=== PATIENT | female | born 1960 | race Caucasian/White ===

== ENCOUNTER 2022-01-25 08:09 | Outpatient (RCR) | payer OTHER, SELFPAY | END 2022-02-26 13:14 | disposition home or self-care (01) | PROVIDERS: PCP Family Medicine; Visit Provider Nurse Practitioner Family | DX: M79.672 Pain in left foot (principal); Z51.89 Encounter for other specified aftercare | CPT/HCPCS: 97161 ==

== ENCOUNTER 2022-04-03 11:43 | Outpatient (CLI) | payer OTHER, SELFPAY ==
[2022-04-03 15:56] LABS: Basophils Absolute Auto 0.07 K/uL (0.00-0.30); Basophils Percent Auto 0.7 % (0.0-3.0); Eosinophils Absolute Auto 0.19 K/uL (0.00-0.50); Eosinophils Percent Auto 1.9 % (0.0-7.0); Hematocrit 39.3 % (33.0-51.0); Hemoglobin* 12.8 gm/dL (12.0-16.0); Immature Granulocytes Abs Auto 0.02 K/uL (0.00-0.30); Lymphocytes Absolute Auto 2.56 K/uL (0.90-2.90); Lymphocytes Percent Auto 26.3 % (20-44); Mean Corpuscular HGB Conc 33 gm/dL (32-36); Mean Corpuscular Hemoglobin 31 pg (26-34); Mean Corpuscular Volume 94 fL (80-100); Monocytes Percent Auto 11.3 % (0.0-11.0); Neutrophils Absolute Auto 5.81 K/uL (1.7-7.0); Neutrophils Percent Auto 59.6 % (42.0-72.0); Platelet Count* 297 K/uL (140-440); RDW Coefficient of Variation % 11.4 % (11.5-15.5); White Blood Count* 9.75 K/uL (4.50-11.00)
[2022-04-03 16:02] LABS: Slide Review Reflex No
== END 2022-04-03 11:44 | disposition home or self-care (01) ==
LOC: KYNREF 11:49
PROVIDERS: PCP Family Medicine; Visit Provider Nurse Practitioner Family
DX: R05.9 Cough, unspecified (principal); R53.83 Other fatigue
CPT/HCPCS: 36415; 85025

== ENCOUNTER 2022-04-11 14:58 | Emergency (ER) | payer OTHER, SELFPAY ==
[2022-04-11 15:09] VITALS: BP 133/77; PULSE 75; RESP 16; TEMP 35.7; O2SAT 100; BMI 20.8
[2022-04-11 15:15] VITALS: BP 118/75; BP 119/81; PULSE 71; PULSE 79; RESP 18; RESP 21; O2SAT 100; O2SAT 99
--- NOTE | 2022-04-11 15:39 | CRLHL7_ITS ---
For Patients: As a result of the Century Cures Act, medical imaging exams and procedure reports are released immediately into your electronic medical record. You may view this report before your referring provider. If you have questions, please contact your health care provider. INDICATION: Right upper quadrant abdomen pain. TECHNIQUE: Ultrasound abdomen limited. Sonographic images of the right upper quadrant were obtained using fletcher-scale and color Doppler images. COMPARISON: None. FINDINGS: Liver: Normal in size and echotexture. No suspicious masses. No intrahepatic biliary dilation. Gallbladder: Non dependent echogenic focus is not shadowing and measures approximately 3 mm. No shadowing gallstones. Normal wall thickness. No pericholecystic fluid. Common bile duct: 4 mm. Pancreas: Unremarkable. Right kidney: Normal in size. Normal echotexture and cortex. Mild hydronephrosis. Vasculature: Proximal abdominal aorta and IVC are unremarkable. IMPRESSION: 1. Probable gallbladder polyp measures 3 mm. 2. Mild right hydronephrosis. 3. No other sonographic abnormality in the right upper quadrant. Dictated by Alvaro Mccormick MD @ 04/11/2022 5:30:08 PM (Electronically Signed)
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
[2022-04-11 15:45] VITALS: PULSE 73; RESP 22
[2022-04-11 15:53] LABS: Basophils Absolute Auto 0.03 K/uL (0.00-0.30); Basophils Percent Auto 0.6 % (0.0-3.0); Eosinophils Absolute Auto 0.12 K/uL (0.00-0.50); Eosinophils Percent Auto 2.4 % (0.0-7.0); Hematocrit 37.5 % (33.0-51.0); Hemoglobin* 12.6 gm/dL (12.0-16.0); Lymphocytes Absolute Auto 1.84 K/uL (0.90-2.90); Lymphocytes Percent Auto 37.3 % (20-44); Mean Corpuscular HGB Conc 34 gm/dL (32-36); Mean Corpuscular Hemoglobin 31 pg (26-34); Mean Corpuscular Volume 91 fL (80-100); Monocytes Percent Auto 7.1 % (0.0-11.0); Neutrophils Absolute Auto 2.59 K/uL (1.7-7.0); Neutrophils Percent Auto 52.6 % (42.0-72.0); Platelet Count* 349 K/uL (140-440); RDW Coefficient of Variation % 11.3 % (11.5-15.5); Red Blood Count 4.13 m/uL (4.00-5.20); Slide Review Reflex No; White Blood Count* 4.93 K/uL (4.50-11.00)
[2022-04-11] MEDS: MORPHINE 4 MG/ML INJ IVP (15:53)
[2022-04-11] MEDS: 0.9 % SODIUM CHLORIDE 1000 ml 1,000 ML 6000 ML IV (15:53)
[2022-04-11 16:00] VITALS: BP 118/74; PULSE 78; O2SAT 95; O2SAT 96
[2022-04-11 16:10] LABS: Albumin* 4.2 g/dL (3.3-5.0); Chloride* 102 mmol/L (96-114)
[2022-04-11 16:11] LABS: Potassium* 3.8 mmol/L (3.6-5.1); Sodium* 137 mmol/L (135-149)
[2022-04-11 16:12] LABS: Amylase* 82 U/L (18-89)
[2022-04-11 16:13] LABS: Aspartate Amino Transferase* 27 U/L (12-35); Bilirubin Total* 0.2 mg/dL (0.1-1.5); Carbon Dioxide* 25 mmol/L (20-32); Creatinine* 0.6 mg/dL (0.5-1.5); Est. Creatinine Clearance* 56.49; Estimated Glomerular Filt Rate 101 ml/min; Total Protein* 7.1 g/dL (6.0-8.3)
[2022-04-11 16:14] LABS: Alanine Aminotransferase* 19 U/L (4-35); Alkaline Phosphatase* 93 U/L (40-150); Blood Urea Nitrogen* 14 mg/dL (7-30); Glucose* 96 mg/dL (60-115)
[2022-04-11 16:18] LABS: C Reactive Protein* < 0.5 mg/dL (0.5-1.0)
[2022-04-11 16:22] LABS: NT Pro B Type NatriureticPept* 26 PG/mL (0-125)
[2022-04-11 16:30] VITALS: BP 123/72; PULSE 77; RESP 16; O2SAT 97
[2022-04-11 16:33] LABS: Troponin I* < 0.01 ng/mL (0.01-0.04)
--- NOTE | 2022-04-11 16:42 | CRLHL7_ITS ---
For Patients: As a result of the Century Cures Act, medical imaging exams and procedure reports are released immediately into your electronic medical record. You may view this report before your referring provider. If you have questions, please contact your health care provider. INDICATION: RUQ abdominal pain, right hydroureter TECHNIQUE: CT abdomen and pelvis without contrast, stone protocol. COMPARISON: CT abdomen pelvis May 30, 2020 FINDINGS: Kidney/ureters: Kidneys are normal in caliber. No kidney or ureteral stones. Mild right and no significant left hydronephrosis. No sign of perinephric inflammation. Ureters are normal in caliber. The bladder is decompressed. Liver/gallbladder/bile ducts: The liver is normal in size, shape and attenuation. Within the left hepatic lobe there is slightly similar low-density lesion measuring 2.4 cm, likely hepatic cyst. Gallbladder is normal without visualized stones or inflammation. No biliary dilatation. Spleen/pancreas/adrenal glands: The spleen, adrenal glands and pancreas are within normal limits. GI tract: No evidence of bowel obstruction. No evidence of enteric inflammation on this unenhanced CT. Suspect that the appendix is surgically absent. There is moderate fecal retention throughout the colon of note the rectum is severely distended and air filled measuring up to 7 cm. Abdominal wall/omentum/peritoneum: No free air or significant free fluid. No mass or inflammation. Small fat containing umbilical hernia. Lymph nodes: No lymphadenopathy. Pelvis: Unremarkable pelvis. Lower chest: Unremarkable. Bones: Grade 1 anterolisthesis of L5 on S1 secondary to L5 pars defects. Moderate multilevel degenerative spondylosis without acute fracture or aggressive osseous lesion. IMPRESSION: 1. Moderate fecal retention throughout the colon and the rectum is severely distended with stool but mostly air, measuring up to 7 cm. 2. Mild right hydronephrosis without evidence of nephrolithiasis or ureterolithiasis. Finding may relate to mass effect from the distended rectum. 3. Grade 1 spondylolytic spondylolisthesis of L5 on S1. Please note that all CT scans at this facility use dose modulation, iterative reconstruction, and/or weight-based dosing when appropriate to reduce radiation dose to as low as reasonably achievable. Dictated by Felipe Lane MD @ 04/11/2022 5:51:11 PM (Electronically Signed)
[2022-04-11 17:00] LABS: Appearance Urine Clear (Clear); Bilirubin Urine Negative (Negative); Blood Urine Negative (Negative); Color Urine Yellow (Yellow); Glucose Urine Negative (Negative); Ketones Urine Negative (Negative); Leukocyte Esterase Urine Negative (Negative); Nitrite Urine Negative (Negative); Protein Urine Negative (Negative); Specific Gravity Urine 1.015 (1.000-1.030); Urobilinogen Urine 0.2 (0.2-1.0); pH Urine 7.5 (5.0-8.5)
[2022-04-11 17:06] LABS: Amorphous Sediment Urine Moderate; Bacteria Urine Few; RBC Urine 0-2 (0-2); WBC Urine 0-2 (0-5)
== END 2022-04-11 18:30 | disposition home or self-care (01) ==
PROVIDERS: Emergency Provider Family Medicine; PCP Nurse Practitioner Family
DX: R10.9 Unspecified abdominal pain (principal); K59.00 Constipation, unspecified
CPT/HCPCS: 36415; 74176; 76705; 80048; 80076; 81001; 82150; 83605; 83880; 84484; 85025; 86140; 87086; 93005; 94761; 96374; 99284; 99285; J2270; J7030

== ENCOUNTER 2022-05-18 07:04 | Outpatient (CLI) | payer OTHER, SELFPAY ==
--- NOTE | 2022-05-18 07:15 | CRLHL7_ITS ---
For Patients: As a result of the Cures Act, medical imaging exams and procedure reports are released immediately into your electronic medical record. You may view this report before your referring provider. If you have questions, please contact your health care provider. Indication: LEFT KNEE PAIN, SUSPECT [place]ugent CYST Technique: Grayscale and color Doppler ultrasound of the left posterior knee soft tissues. Comparison: Radiographs 05/14/2022 Findings/impression : Mildly complicated popliteal cyst and adjacent additional popliteal cyst or soft tissue ganglion cyst measuring 3.1 cm and 2.0 cm, respectively. No abnormal vascularity. Dictated by Daen Rajan MD @ 05/18/2022 11:27:23 AM (Electronically Signed)
== END 2022-05-18 07:05 | disposition home or self-care (01) ==
LOC: US 07:06
PROVIDERS: PCP Nurse Practitioner Family; Visit Provider Nurse Practitioner Family
DX: M25.562 Pain in left knee (principal); M71.22 Synovial cyst of popliteal space [Baker], left knee
CPT/HCPCS: 76882

== ENCOUNTER 2022-05-29 08:55 | Outpatient (CLI) | payer OTHER, SELFPAY ==
--- NOTE | 2022-05-29 15:03 | MR_ITS ---
[address] [address] Phone:?[phone] Fax:?[phone] Referring Physician Information: Chago Perez M.D. [id number] [facility] [address] Phone:?[phone] Fax:?[phone] Patient:Diane Goncalves D.O.B:?1960 Sex:?Female Phone:?[phone] [facility] MRN:?[id number] Exam Date:?05/29/2022 ? EXAM: MRI of the LEFT KNEE, without contrast CLINICAL: Left knee pain. Evaluate for meniscal tear. COMPARISONS: None available. TECHNICAL: MR sequences of the left knee: sagittals: PD, PDFS coronals: PD, T2FS axials: PD, PDFS SEDATION: None. CONTRAST: None. FINDINGS: Ligaments: ACL: Intact ACL anteromedial and posterolateral bundles, without sprain or tear. PCL: Intact PCL, without acute or chronic injury. MCL: Intact MCL superficial and deep layers, without injury. LCL: There is increased soft tissue edema about the LCL, with mild irregularity/partial tearing of the mid LCL. Mild partial tearing of the conjoined distal LCL and biceps femoris tendon also noted. Posterolateral corner: Mild partial tearing of the conjoined distal LCL and biceps femoris tendon. Popliteus tendon, iliotibial band, and the popliteofibular ligament appear intact. Posteromedial corner: Semimembranosus, pes anserine tendons and posterior oblique ligament appear intact. There is mild pes anserine bursitis. Extensor mechanism: Patellar tendon: Intact, without tendinopathy. Quadriceps tendon: Intact, without tendinopathy. Retinacula: Medial and lateral retinacula are intact. Fat pads: Unremarkable infrapatellar Hoffa's, quadriceps and prefemoral fat pads. Patellofemoral joint: Patella: No significant chondromalacia. Trochlea: Focal deep chondral fissure involving the medial trochlea on axial series 4 image 19. Trochlear cartilage otherwise appears maintained. Medial compartment: Medial meniscus: Complex tearing throughout the body segment and posterior horn extending into the posterior root fibers. There is mild superior displacement of torn meniscal tissue along the posterior fibers on sagittal series 6 image 14-15 and coronal series 8 image 23. Approximately 3 mm of medial extrusion of the peripheral body segment medial meniscus. Medial cartilage: Grade 2-3 chondral loss involves the medial femoral condyle and medial tibial plateau. Lateral compartment: Lateral meniscus: Horizontal and ill-defined complex tearing involving the body segment with horizontal tearing extending into the anterior and posterior horns. Ill-defined degenerative fraying/tearing involving the posterior root fibers on sagittal series 6 image 17-20. No significant meniscal displacement. Lateral cartilage: There is heterogeneity of the lateral tibial plateau cartilage. No chondral defects identified. Knee joint: Effusion: Moderate left knee effusion. Intra-articular bodies:?No convincing bodies identified. Popliteal cyst: None. Bones: Small cystic change is seen to involve the tibial attachment site of the distal PCL with small subchondral cystic change involving the peripheral medial plateau. No osseous fracture site is identified. IMPRESSION: 1. Tearing of the medial and lateral menisci as above, with displacement of torn medial meniscal tissue as above. 2. Mild sprain injury involving the LCL with mild partial tearing of the conjoined distal LCL and biceps femoris tendon. 3. Mild pes anserine bursitis. 4. Grade 2-3 chondral loss involving the medial compartment with focal deep chondral fissure involving the medial trochlea. 5. Moderate joint effusion. Z Electronically signed on 05/29/2022 3:03:00 PM by Lazarus Leavitt D.O.
== END 2022-05-29 08:56 | disposition home or self-care (01) ==
LOC: MRI 08:55
PROVIDERS: PCP Nurse Practitioner Family; Visit Provider Orthopaedic Surgery Sports Medicine
DX: M25.562 Pain in left knee (principal); M23.204 Derangement of unspecified medial meniscus due to old tear or injury, left knee; S86.912A Strain of unspecified muscle(s) and tendon(s) at lower leg level, left leg, initial encounter; M25.462 Effusion, left knee; M71.562 Other bursitis, not elsewhere classified, left knee
CPT/HCPCS: 73721

== ENCOUNTER 2022-06-06 09:20 | Day surgery (SDC) | payer OTHER, SELFPAY ==
[2022-06-06] VITALS (11 sets, daily range): BP systolic 97–115; BP diastolic 68–85; PULSE 78–91; RESP 11–20; TEMP 36.1–36.7; O2SAT 98–100; BMI 21.4
--- NOTE | 2022-06-06 09:30 | SUR.PREOP ---
home covid test, negative
[2022-06-06] MEDS: LACTATED RINGERS 1000 ML 1,000 ML 100 ML IV (10:00)
[2022-06-06] MEDS: SODIUM CHLORIDE 0.9 % (FLUSH) 10 ML SYRINGE IVF (10:02)
[2022-06-06] MEDS: CEFAZOLIN 2 GM in 0.9 % SODIUM CHLORIDE Mini-bag 100 ML IVPB (12:50)
--- NOTE | 2022-06-06 13:15 | W.ANESCHARGE ---
Anesthesia Charges Start Date/Time Anesthesia Start Date: 06/06/22 Anesthesia Start Time: 12:38 Stop Date/Time Anesthesia Stop Date: 06/06/22 Anesthesia Stop Time: 13:33 Summary Emergency: No
[2022-06-06] MEDS: ROPIVACAINE 0.5% 30 ML 150 MG INJECTION (13:20)
--- NOTE | 2022-06-06 13:23 | P.ORPRC_ITS ---
Procedure Note Date of procedure: 06/06/22 Procedure: PREOPERATIVE DIAGNOSIS: 1. Left knee medial meniscus tear POSTOPERATIVE DIAGNOSIS: 1. Left knee medial meniscus tear PROCEDURE: 1. Left knee arthroscopic partial medial menisectomy SURGEON: Chago Perez M.D. AUTOMOTIVE SERVICE PROFESSIONAL: Vicente MORRIS. Of note, an graduate assistant was critical for this case to aid in patient positioning, knee manipulation, instrument exchange, and closure. ANESTHESIA: Spinal EBL: 2ml TOURNIQUET: 25 minutes at 300 torr COMPLICATIONS: None evident INDICATIONS: The patient is a pleasant 62-year-old female who has experienced left knee pain particularly with any twisting or turning. Physical exam was concerning for medial meniscus tear, this was confirmed on MRI. Additionally, attempted nonoperative management has been tried, and failed. Thus, surgery was recommended. FINDINGS: Complex tear posterior horn to midbody medial meniscus. Posterior root still had some connected fibers. Small region of grade 3 chondromalacia weight-bearing portion medial femoral condyle (approximately 8 mm in diameter). ACL and PCL intact robust. Lateral compartment showed minimal central fraying of the meniscus with only mild tearing. Articular cartilage was healthy. Patellofemoral compartment showed grade 2 chondromalacia trochlear groove and a small region over 8 mm in length by 3 mm wide. Patella was otherwise well preserved. No loose bodies appreciated. DESCRIPTION OF PROCEDURE: After a thorough discussion of risks, benefits, and alternatives, the patient was brought to the operating room and placed upon the operating table. Induction of anesthesia was undertaken as previously noted. 2g iv Ancef was administered within 1 hr of incision preoperatively. Appropriate time-out was performed identifying proper patient, site, and procedure. The left lower extremity was prepped and draped in the appropriate sterile fashion using ChloraPrep. The limb was exsanguinated and tourniquet inflated. Anterolateral and anteromedial portals were established with an 11 blade, and a diagnostic arthroscopy was performed. This identified the findings as noted above. Following the diagnostic arthroscopy, a partial medial menisectomy was performed with the combination of basket forceps and a motorized shaver. Following this, the meniscus was re-probed and found to be stable. Approximately 25 % of the overall meniscus required resection. Regarding the lateral meniscus, the central fraying and mild partial tearing was minimal and simply required torpedo shaver to help minimally debride this. Not a significant partial meniscectomy. At this stage, the shaver was reinserted into the suprapatellar pouch and all remaining meniscal debris was evacuated. Instruments were removed, excess fluid was drained, and closure performed with 4-0 Monocryl with Steri-Strips. Dressings were applied, the tourniquet deflated, and the patient was awoken from anesthesia and transferred to the PACU in stable condition. PLAN: 1. Weightbear as tolerated operative extremity. Crutch / walker ambulation assistance PRN. Straight leg raise to be initiated starting tomorrow by the patient. 2. Ice, acetominophen and/or ibuprofen, and Percocet for pain as needed. 3. Knee range of motion and quad sets/straight leg raise regularly 4. Follow up with PA visit in 7-10 days. for a wound check. Initiate physical therapy at that time
--- NOTE | 2022-06-06 13:52 | W.ANESCHARGE ---
Anesthesia Charges Start Date/Time Anesthesia Start Date: 06/06/22 Anesthesia Start Time: 12:38 Stop Date/Time Anesthesia Stop Date: 06/06/22 Anesthesia Stop Time: 13:33 Summary Emergency: No
== END 2022-06-06 15:21 | disposition home or self-care (01) ==
PROVIDERS: PCP Nurse Practitioner Family; Visit Provider Orthopaedic Surgery Sports Medicine
PROC: (CPT 29870; principal; 2022-06-06 11:00)
DX: S83.232A Complex tear of medial meniscus, current injury, left knee, initial encounter (principal)
CPT/HCPCS: 29881; 01400; 97116; 97161; J0690; J2250; J2370; J2704; J2795; J7120

== ENCOUNTER 2022-10-03 10:01 | Outpatient (CLI) | payer OTHER, SELFPAY ==
--- NOTE | 2022-10-03 10:15 | CRLHL7_ITS ---
For Patients: As a result of the Century Cures Act, medical imaging exams and procedure reports are released immediately into your electronic medical record. You may view this report before your referring provider. If you have questions, please contact your health care provider. BILATERAL SCREENING MAMMOGRAM WITH COMPUTER-AIDED DETECTION AND TOMOSYNTHESIS TECHNIQUE: CC and MLO views were obtained. These mammographic images have been obtained using full-field digital technique. These mammographic images were interpreted with the benefit of computer-aided detection. Breast tomosynthesis was used in this interpretation. FINDINGS: There are scattered areas of fibroglandular density. IMPRESSION: There is no radiographic evidence for malignancy. ASSESSMENT: BI-RADS Category 1: Negative RECOMMENDATION: Routine screening mammogram in 1 year. A lay language report of this examination will be provided to the patient. DEAN BURGESS M.D. Diagnostic Radiologist [email or web address]/[email or web address] Transcribed 10/03/2022, 3:[address]/Dictated by: Dean Burgess MD @ 10/03/2022 11:06:00 AM (Electronically Signed)
== END 2022-10-03 10:02 | disposition home or self-care (01) ==
LOC: MAMMO 10:01
PROVIDERS: PCP Nurse Practitioner Family; Visit Provider Nurse Practitioner Family
DX: Z12.31 Encounter for screening mammogram for malignant neoplasm of breast (principal)
CPT/HCPCS: 77063; 77067

== ENCOUNTER 2022-10-16 08:23 | Outpatient (CLI) | payer OTHER, SELFPAY ==
[2022-10-16 13:44] LABS: Basophils Absolute Auto 0.03 K/uL (0.00-0.30); Basophils Percent Auto 0.6 % (0.0-3.0); Eosinophils Absolute Auto 0.19 K/uL (0.00-0.50); Eosinophils Percent Auto 3.8 % (0.0-7.0); Hemoglobin* 13.9 gm/dL (12.0-16.0); Lymphocytes Absolute Auto 1.88 K/uL (0.90-2.90); Lymphocytes Percent Auto 37.2 % (20-44); Mean Corpuscular HGB Conc 32 gm/dL (32-36); Mean Corpuscular Hemoglobin 30 pg (26-34); Mean Corpuscular Volume 94 fL (80-100); Monocytes Percent Auto 6.9 % (0.0-11.0); Neutrophils Percent Auto 51.5 % (42.0-72.0); Platelet Count* 277 K/uL (140-440); RDW Coefficient of Variation % 12.1 % (11.5-15.5); Red Blood Count 4.66 m/uL (4.00-5.20); White Blood Count* 5.05 K/uL (4.50-11.00)
[2022-10-16 13:51] LABS: Slide Review Reflex No
[2022-10-16 15:24] LABS: Albumin* 4.5 g/dL (3.3-5.0); Chloride* 103 mmol/L (96-114)
[2022-10-16 15:25] LABS: Potassium* 4.5 mmol/L (3.6-5.1); Sodium* 139 mmol/L (135-149)
[2022-10-16 15:27] LABS: Aspartate Amino Transferase* 30 U/L (12-35); Bilirubin Total* 0.6 mg/dL (0.1-1.5); Blood Urea Nitrogen* 14 mg/dL (7-30); Carbon Dioxide* 27 mmol/L (20-32); Cholesterol* 221 mg/dL (90-199); Creatinine* 0.7 mg/dL (0.5-1.5); Estimated Glomerular Filt Rate 97 ml/min; Total Protein* 7.3 g/dL (6.0-8.3)
[2022-10-16 15:28] LABS: Alanine Aminotransferase* 21 U/L (4-35); Alkaline Phosphatase* 81 U/L (40-150); Calcium* 9.3 mg/dL (8.4-10.6); Glucose* 95 mg/dL (60-115); HDL Cholesterol* 82 mg/dL (>=50); LDL Cholesterol Calculated 115 mg/dL (<100); Triglycerides* 120 mg/dL (40-149)
== END 2022-10-16 08:24 | disposition home or self-care (01) ==
PROVIDERS: PCP Nurse Practitioner Family; Visit Provider Nurse Practitioner Family
DX: Z00.00 Encounter for general adult medical examination without abnormal findings (principal); Z13.1 Encounter for screening for diabetes mellitus; Z13.0 Encounter for screening for diseases of the blood and blood-forming organs and certain disorders involving the immune mechanism; Z13.6 Encounter for screening for cardiovascular disorders
CPT/HCPCS: 80053; 80061; 85025

== ENCOUNTER 2023-01-30 09:45 | Outpatient (RCR) | payer OTHER, SELFPAY | END 2023-05-30 23:59 | disposition home or self-care (01) | PROVIDERS: PCP Nurse Practitioner Family; Visit Provider Nurse Practitioner Family | DX: H81.11 Benign paroxysmal vertigo, right ear (principal); R26.81 Unsteadiness on feet; Z51.89 Encounter for other specified aftercare | CPT/HCPCS: 95992; 97112; 97162 ==

== ENCOUNTER 2023-04-30 14:45 | Outpatient (RCR) | payer OTHER, SELFPAY ==
--- NOTE | 2023-04-04 17:52 | PT.OPEX ---
PT [place] Outpatient Eval PT [facility] Outpatient Eval Start: 04/04/23 10:30 Freq: Status: Active Protocol: Document 04/04/23 10:30 [facility] (Rec: 04/04/23 11:31 [facility] [id number]) E-signed By Alverto Martines, PT Physical Therapy Outpatient Evaluation Insurance Information Insurance Name [employer] One Medical Diagnosis Lumbar back pain w/ right LE sciatica M54.50, M54.31 Treating Diagnosis Right hip pain M25.551 Low back pain M54.5 L5/S1 spondylolisthesis Subjective Subjective Pt reports insidious onset of right posterior leg pain a few weeks ago, from the R buttock to the knee. Patient w/ lumbar spondylolisthesis. Has taken a class on back care/ body mechanics. 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 Preferred Name Magalis Precautions Therapy Limitations/Systems Review Not Limited Objective Other/Pertinent Objective Posture: flattened lumbar spine, elevated right pelvis/ shortened R QL elevated R PSIS Lumbar: Flexion: WNL, slight pain with return to upright Extension: ltd 50%, LBP Sidebend: R, +pain L +pain right low back/buttock Hip: WNL, but +LBP with end range IR/ER Strength: single heel raise: R 10x but w / increasing pain right leg L 10X painfree Abdominal: able to clear scapulae LEs: Grossly 5/5 per MMT for hip flexion, knee flex/ext and ankle DF, Glute med 4+/5 Left LE: 5/5 except Balance: SLS: at least 10 sec, +concordant pain with R SLS Special tests: Stork: + pain w/ right leg lift, - left SLR: negative neural tension, + LBP @ ~80 deg flexion LARISSA: - DKTC: mild low back stretch Maurisio: good length, no back pain Piriformis: tight lower fiber stretch w/ + concordant pain Palpation: - TTP PSIS or LS paraspinals Functional Test Performed & Score Antalgic gait, especially with first steps after sitting Assessment Assessment/Impression 62 year old female with h/o L5 -S1 spondylolisthesis and onset of right buttock pain that extends to posterior knee , insidious onset. From testing, it appears that pain is a combination of mechanical pain from spondylolisthesis compounded by tight/irritable right piriformis. Patient to benefit from skilled PT for skilled MT to reduce soft tissue irritability and progress lumbar stabilization HEP to protect spondylolisthesis. Primary Functional Limitations stairs, inclines, ambulation after prolonged sitting Plan of Care Rehabilitation Potential Excellent Physical Therapy Goals In 6 weeks, patient will: 1) Ambulate up/down stairs and inclines right buttock pain max 2/10 2) Ambulate nearly painfree with first steps after prolonged sitting 3) Be I with HEP and self- management of residual symptoms Coordination/Communication With Referral Source Treatment Plan/Direct Interventions Manual Therapy,Neuromuscular Re-ed,Self-Care/Home Management,Therapeutic Exercises Direct Interventions Clarification MT to right hip/piriformis, Comments lumbar stabilization ex, glute strengthening Frequency/Duration 1x/ week for 4-6 weeks Patient Will Be Discharged From Therapy Completion of LTG(s), Independent w/HEP, Independently Progressing Evaluation Billing Untimed Code Treatment Minutes 30 Complexity Moderate Certification Information Physician Comment/Change : Physician NPI Number #
--- NOTE | 2023-04-30 15:52 | PT.OPDNX ---
PT [address] Outpatient Daily Note PT [facility] Outpatient Daily Note Start: 04/04/23 10:30 Freq: Status: Active Protocol: Document 04/30/23 14:44 [facility] (Rec: 04/30/23 15:48 [facility] [id number]) E-signed By Alverto Martines, PT PT OP Daily Progress Note Visit Information Note Type Daily Note Visit Number 4 Insurance Authorized Visits 6 Insurance Information Insurance Name [employer] Medical Diagnosis Lumbar back pain w/ right LE sciatica M54.50, M54.31 Treating Diagnosis Right hip pain M25.551 Low back pain M54.5 L5/S1 spondylolisthesis Referring MD Lulu Antonio, SENIOR PHP SOFTWARE DEVELOPER Subjective Subjective Pt reports that her pain really fluctuates. She had a good weekend and then it hurt last night. Pt is frustrated by the up & down nature of her pain. She also gets pain into her right calf and foot. Denies bowel/bladder changes. Denies N/T in R LE Pain Comments up to R LE Preferred Name Magalis Home Exercise Home Exercise Comments Access Code: [email or web address] URL: [email or web address] Date: 04/30/2023 Prepared by: Alverto Martines Objective Functional Test Performed & Score SLS: R: 8 sec (+pain right thigh) L: 10 sec Patient Instructed in Risks/Benefits Yes Therapeutic Exercise Therapeutic Exercise Minutes (minutes) 40 Therapeutic Exercise: To Restore Reviewed and modified HEP to Functional Status avoid pain provoking ex and facilitate neutral and/or flexed spine abdominal strengthening. Access Code: [email or web address] URL: [email or web address] Date: 04/09/2023 Prepared by: Alverto Martines Exercises - Supine 90/90 Abdominal Bracing - 1 x daily - 4 x weekly - 1 sets - 5-10 reps - 5 seconds hold - Supine Bicycles - 1 x daily - 4 x weekly - 2 sets - 15-20 reps - Supine Bug with Leg Extension - 1 x daily - 4 x weekly - 3 sets - 10 reps: d/c - Hip Flexor Stretch at Edge of Bed - 1 x daily - 7 x weekly - 1 sets - 1 reps - 1-2 minutes hold - Supine Piriformis Stretch - 2 x daily - 7 x weekly - 1 sets - 2 reps - 30-60 sec hold - Supine Piriformis Stretch with Foot on Ground - 2 x daily - 7 x weekly - 1 sets - 2 reps - 30-60 sec hold - Piriformis Mobilization on Foam Roll - 1 x daily - 7 x weekly - 1 sets - 10-20 reps - Mini Lunge - 1 x daily - 4 x weekly - 1 sets - 10 reps - 5 seconds hold: d/c for now - Active Straight Leg Raise with Quad Set - 1 x daily - 4 x weekly - 1 sets - 10-20 reps - Bird Dog on [place] Ball - 1 x daily - 4 x weekly - 10-20 reps - Seated Hip Abduction with Resistance - 1 x daily - 4 x weekly - 1 sets - 10-20 reps - Supported Happy Baby with Legs on Chair - 1 x daily - 7 x weekly - 1 sets - 1 reps Instructed in and added to HEP : hooklying glute squeeze 5 sec holds able to progress to beginner bridge 8x gentle oblique curl in supine w/ legs elevated 90/90 sit to stand w/ glute squeeze at top standing fire hydrant w/ counter support point vector quad sets in long sit position Reviewed: Recumbant w. legs on s ball left lower trunk rotation & pelvic tilts seated ball walk outs to flexion and left side bend seated flexion for pain relief w/ walking 40 min total time including updating [employer] HEP Treatment Minutes Timed Code Treatment Minutes 40 Total Treatment Time 40 Billing Units Therapeutic Exercise Units 3 Assessment/Impression Assessment/Impression Magalis attended her fourth PT session since evaluation 04/04. She is compliant with her HEP and understands techniques to use to reduce pain with activity. Magalis is active and in good physical health overall. Despite this, she continues to have fluctuating LBP with R LE radiculopathy. Pain gets up to severe (8-9/10). I recommend she continue to perform the HEP as prescribed, but she may benefit from additional imaging - either an MRI or x-ray to assess for level of instability from the anterolisthesis (ie. in flexed /extended positions of spine). A next step may also include consulting with a computer security specialist. Plan of Care Physical Therapy Goals In 6 weeks, patient will: 1) Ambulate up/down stairs and inclines right buttock pain max 2/10 2) Ambulate nearly painfree with first steps after prolonged sitting 3) Be I with HEP and self- management of residual symptoms Daily Plan of Care Change POC; See Comments Daily Plan of Care Comments No further visits scheduled at this time. I recommended that Magalis f/u with her PCP to discuss possibility of further imaging work up or referral to a computer security specialist.
== END 2023-08-28 23:59 | disposition home or self-care (01) ==
PROVIDERS: PCP Nurse Practitioner Family; Visit Provider Nurse Practitioner Family
DX: M54.50 Low back pain, unspecified (principal); M54.31 Sciatica, right side; M25.551 Pain in right hip; M43.16 Spondylolisthesis, lumbar region; M43.18 Spondylolisthesis, sacral and sacrococcygeal region; Z51.89 Encounter for other specified aftercare
CPT/HCPCS: 70486; 97110; 97140; 97162; 97535

== ENCOUNTER 2023-05-01 17:07 | Outpatient (CLI) | payer OTHER, SELFPAY ==
--- NOTE | 2023-05-01 17:30 | CRLHL7_ITS ---
For Patients: As a result of the Century Cures Act, medical imaging exams and procedure reports are released immediately into your electronic medical record. You may view this report before your referring provider. If you have questions, please contact your health care provider. INDICATION: Low back pain. TECHNIQUE: Sagittal and axial T1, sagittal axial T2 and sagittal STIR images are obtained. COMPARISON: Lumbar spine radiographs dated 04/01/2023. FINDINGS: There is grade 1 spondylolisthesis at the L5-S1 level. There is associated bilateral L5 spondylolysis (bilateral L5 pars defects) and degenerative disc changes throughout the lumbar spine. No acute compression fractures. The distal spinal cord and conus medullaris appear normal in morphology and signal intensity. The conus tip terminates at the lower L2 level. Small incidental osseous hemangioma at the T11 level has doubtful significance. No posterior disc herniation or stenosis at the T10-11, T11-12 or T12-L1 levels. At L1-2 slight degenerative anterolisthesis. Bilateral facet hypertrophy and mild bulging disc cause mild ventral thecal sac deformity without stenosis of the spinal canal or neural foramen. At L2-3 there is marked degenerative disc space narrowing. There is disc desiccation. Circumferential marginal osteophytes and bilateral facet arthropathy. Mild ventral thecal sac deformity neural foramen are adequately patent. At L3-4 degenerative disc space narrowing and disc desiccation. Mild marginal spurring and bilateral facet arthropathy without stenosis of the spinal canal or neural foramen. At L4-5 degenerative disc desiccation. Vacuum disc phenomenon. [place] is circumferential annular bulge with left posterolateral disc protrusion. There is impingement of the traversing left L5 nerve root in the lateral recess. The neural foramen are mildly narrowed. At L5-S1 a grade 1 degenerative spondylolisthesis. Bilateral L5 spondylolysis. We there is some no stenosis of the spinal canal and the there is mild to moderate left-sided neural foraminal narrowing with some flattening of the exiting left L5 nerve root. Small perineural cysts are noted within the upper sacral spinal canal. IMPRESSION: 1. Multilevel lumbar spondylosis. 2. Grade 1 spondylolytic type spondylolisthesis at L5-S1 with associated bilateral L5 pars defects. Left greater than right neural foraminal narrowing with some impingement of the exiting left L5 nerve root. 3. At L4-5 there is broad-based and left posterolateral disc protrusion with mild impingement of the traversing left L5 nerve root. 4. Marked degenerative disc space narrowing also noted at L3-4 and L2-3. Mild degenerative anterolisthesis at L1-2. Dictated by Leonides Krishna MD @ 05/02/2023 8:31:10 AM (Electronically Signed)
== END 2023-05-01 17:08 | disposition home or self-care (01) ==
LOC: MRI 17:07
PROVIDERS: PCP Nurse Practitioner Family; Visit Provider Nurse Practitioner Family
DX: M54.50 Low back pain, unspecified (principal); M47.896 Other spondylosis, lumbar region; M51.26 Other intervertebral disc displacement, lumbar region; M54.31 Sciatica, right side
CPT/HCPCS: 72148

== ENCOUNTER 2023-08-14 14:02 | Outpatient (CLI) | payer MEDICARE, BC, SELFPAY ==
--- NOTE | 2023-08-14 14:30 | MR_ITS ---
Patient: ALIX POP Facility:?[facility] Patient ID:?[id number] Site Patient ID:?[id number]. Site :?[id number] Study:?MRI-Pelvis (Bony) W/O-08/14/2023 3:33:41 PM Ordering Physician:ZEV NEELY Final Report: EXAM: MRI OF THE PELVIS, WITHOUT CONTRAST CLINICAL INDICATION: Sacrococcygeal pain. COMPARISON PLAIN FILMS: 08/08/2023. COMPARISON CROSS-SECTIONAL IMAGING STUDIES: None. TECHNICAL: Axial, sagittal and coronal T1, PD FS and STIR images of the pelvis. FINDINGS: HIP JOINTS: Right: No joint effusion. No subchondral edema or cystic change. Left: No joint effusion. No subchondral edema or cystic change. OSSEOUS STRUCTURES: No fracture, bone marrow contusion or stress change. No or marrow replacement process. No evidence for avascular necrosis. MUSCULOTENDINOUS STRUCTURES AND BURSAE: Gluteus Minimus and Medius: [id number] right gluteus medius tendinopathy. Left gluteus medius tendinopathy. No tendon tear. The gluteus minimus is unremarkable. No muscle atrophy or edema. Bursae: No trochanteric or iliopsoas bursitis. Common Hamstrings: No tendon tear or tendinopathy. Adductors and Flexors: Tendons and myotendinous junctions are intact. No muscle atrophy or edema. SOFT TISSUES: No subcutaneous edema, hematoma or fluid collection. OTHER JOINTS: Sacroiliac joints are maintained. Pubic symphysis is maintained. INTRAPELVIC CONTENTS: No mass, fluid collection or adenopathy. No inguinal hernia. NEUROVASCULAR STRUCTURES: No abnormality of the proximal femoral or sciatic nerves. No aneurysmal dilatation of the visualize distal aorta. IMPRESSION: 1. Bilateral gluteus medius tendinopathy, right greater than left. 2. Remainder unremarkable. Dictated by Zechariah Mix MD @ 08/15/2023 8:16:19 AM Signed by:Goyo Mix MD @08/15/2023 8:16:19 AM (Electronic Signature)
== END 2023-08-14 14:03 | disposition home or self-care (01) ==
LOC: MRI 14:05
PROVIDERS: PCP Nurse Practitioner Family; Visit Provider Family Medicine
DX: M53.3 Sacrococcygeal disorders, not elsewhere classified (principal)
CPT/HCPCS: 72195

== ENCOUNTER 2023-10-07 08:59 | Outpatient (CLI) | payer MEDICARE, BC, SELFPAY ==
--- OUTSIDE RECORDS SUMMARY | 2023-10-07 09:03 | XMS_ITS | Clinical Summary ---
Author Name Unknown Organization [facility] Address [place], [place] [address] Care Team Providers Care Nursing Instructor Name Role Phone Lulu Antonio NP Primary Care Provider [phone]- [phone] Allergies No known active allergies Medications Medication Sig Dispensed Refills Start Date End Date Status omeprazole (PRILOSEC) 20 mg Delayed-Release capsule Twice A Day 04/25/2020 Active multivitamin-minerals therapeutic (THERAGRAN-M) tablet Daily Acti ve Ytdkxrna5-Tdwefm2-Fmooc therm. 112.5 billion cell cap Daily Active famotidine (PEPCID) 20 mg tablet Take 1 tablet by mouth once daily if needed. 0 05/27/2020 Active Encounters Date Type Department Care Team Description 09/27/2023 10:56 AM CDT - 09/27/2023 11:59 PM CDT Hospital Encounter [address] [address] Simon Post MD Vinar, Kaylin J, TRUCKING CONTRACTOR 09/27/2023 Travel 09/16/2023 12:55 PM CDT - 09/16/2023 11:59 PM CDT Hospital Encounter [address] [address] Simon Post MD Vinar, Kaylin J, TRUCKING CONTRACTOR 09/16/2023 Travel 09/12/2023 10:12 AM CDT - 09/12/2023 11:59 PM CDT Hospital Encounter [address] [address] Sejal MD Chikis Baird, Darleen, PT 09/12/2023 Travel 09/10/2023 9:13 AM CDT - 09/10/2023 11:59 PM CDT Hospital Encounter [address] [place] [address] Sejal, MD Chikis Baird, Darleen, PT 09/10/2023 Travel 08/12/2023 8:26 AM PLAY WRITER - 08/12/2023 11:59 PM PLAY WRITER Hospital Encounter [address] [place] [address] Sejal, MD Chikis Baird, Darleen, PT 08/12/2023 Travel 08/05/2023 9:13 AM PLAY WRITER - 08/05/2023 11:59 PM PLAY WRITER Hospital Encounter [address] [place] [address] Sejal, MD Chikis Baird, Darleen, PT 08/05/2023 Travel 07/29/2023 1:00 PM PLAY WRITER - 07/29/2023 11:59 PM PLAY WRITER Hospital Encounter [address] [address] Sejal, MD Esther Baird Kaylin J, TRUCKING CONTRACTOR 07/29/2023 Travel 07/22/2023 1:10 PM PLAY WRITER - 07/22/2023 11:59 PM PLAY WRITER Hospital Encounter [address] [address] Sejal, MD Chikis Baird Tia, PT 07/22/2023 Travel 07/15/2023 12:56 PM PLAY WRITER - 07/15/2023 11:59 PM PLAY WRITER Hospital Encounter [address] [place] [address] Simon Post MD Vinar, Kaylin J, TRUCKING CONTRACTOR 07/15/2023 Travel 07/08/2023 11:40 AM PLAY WRITER - 07/08/2023 11:59 PM PLAY WRITER Hospital Encounter [facility] [address] [address] Simon Post MD Hagy, Tia, PT 07/08/2023 Travel from Last 3 Months Social History Tobacco Use Types Packs/Day Years Used Date Smoking Tobacco: Never Smokeless Tobacco: Never Social Connections Answer Date Recorded Frequency of Communication with Friends and Fami ly Not on file 06/17/2021 Financial Resource Strain Answer Date R ecorded Difficulty of Paying Living Expenses Not on file 06/17/2021 Difficulty of Paying Living Expenses Not on file 06/17/2021 Sex and Gender Information Value Date Recorded Sex Assigned at Not on file Gender Identity Not on file Sexual Orientation Not on file Obstetrics History Last Filed Vital Signs Vital Sign Reading Time Taken Comments Blood Pressure 138/77 05/27/2020 3:46 PM PLAY WRITER Pulse 97 05/27/2020 3:46 PM PLAY WRITER Temperature 36.8 ??C (98.2 ??F) 02/02/2015 3:12 PM CD T Respiratory Rate 16 02/02/2015 3:12 PM CDT Oxygen Saturation 99% 05/27/2020 3:46 PM PLAY WRITER Inhaled Oxygen Concentration - - Weight 71.7 kg (158 lb) 05/27/2020 3:46 PM PLAY WRITER Height 172.7 cm (5' 8) 05/27/2020 3:46 PM PLAY WRITER Body Mass Index 24.02 05/27/2020 3:46 PM PLAY WRITER Plan of Treatment Health Maintenance Due Date Last Done Comments Tdap 1969 Depression screening for age 12+ 1970 HIV for age 15-65 1973 Hepatitis C screening for ag e 18-79 1976 Tetanus booster 1978 Colonoscopy through age 75 2003 Lipids for age 45-75 2003 Mammogram for age 45-75 2003 Zoster (shingles) series for age 50+ (1 of 2) 2008 BMI (ht and wt on same day) for age 18+ 05/27/2021 05/27/2020 Pap test for age 21-65 03/04/2022 9, 03/04/2019, 05/14/2016 DEXA/DXA scan for age 65+ 2023 Pneumococcal series for age 65+ (1 of 1 - PCV) 2023 Influenza for age 65+ 02/16/2024 COVID-19 vaccine series Completed 04/11/20 23, 04/20/2022, 01/15/2022, Additional history exists Procedures Procedure Name Priority Date/Time Associated Diagnosis Comments KNOCKOUT MAN THIN PREP PAP SCREEN IMAGED Routine 03/04/2019 2:00 PM CDT from Last 3 Months or Most Recently Relevant to Health Maintenance Results * KNOCKOUT MAN THIN PREP PAP SCREEN IMAGED (03/04/2019 2:00 PM CDT) Case Report Gynecologic Cytology Report ? Case: [id number] ? Authorizing Provider: ??Radha Mantilla NP ? Collected: ? 03/04/2019 1400 ? Ordering Location: ? [facility] ?Received: ?03/06/2019 1127 ? First Screen: ?Parker, Bebo ? Specimen: ?KNOCKOUT MAN ThinPrep Vial Screening, Cervical/Vaginal ? 03/12/2019 10:54 AM CDT [facility] INTERPRETATION/ RESULT NEGATIVE FOR INTRAEPITHELIAL LESION OR MALIGNANCY (NIL) (none) 03/12/2019 10:54 AM CDT [facility] IMEN ADEQUACY Satisfactory for evaluation No endocervical component seen 03/12/2019 10:54 AM CDT [facility] HPV REQUEST HPV and PAP 03/12/2019 10:54 AM CDT [facility] Last Pap Date 05/14/2016 03/12/2019 10:54 AM CDT [facility] Last Pap Result NIL 9 10:54 AM CDT [facility] Automated Review Successful 03/12/2019 10:54 AM CDT [facility] Comment:Specimen processed s uccessfully by automated printing services coordinator device, [employer] System, [employer] ANCILLARY TESTING KNOCKOUT MAN HPV Ordered, Please see separate report 03/12/2019 10:54 AM CDT [facility] Note The pap test is a screening technique, not a diagnostic procedure. ??It is used primarily to screen for squamous cancers and precursor lesions. ??Published studies have shown that it is subject to both false negative and false positive results. ??The pap test should not be used as the sole means to diagnose or exclude pre-malignant and malignant lesions. Cytology is screened and interpreted at [facility] - [address], [place] [address] and [facility] - [address]; [place] [address] and [facility] - [address]; [place] [address] and [facility] [address]; [place] [address] 03/12/2019 10:54 AM CDT [facility] Other (Cervical/Vagina l) 03/04/2019 2:00 PM CDT 03/06/2019 11:27 AM CDT Radha Mantilla NP PATHOLOGY/[facility]Y [facility] [address] [place] [address], [place] from Last 3 Months or Most Recently Relevant to Health Maintenance Care Teams Nursing Instructor Relationship Specialty Start Date End Date Lulu Antonio NP [address] [place] [address] PCP - General Emergency Medicine 05/16/23
--- NOTE | 2023-10-07 09:15 | MM_ITS ---
Patient: ALIX POP Facility:?[facility] Patient ID:?[id number] Site Patient ID:?[id number]. Site :?1960 Study:?XRay-Breast Bilateral 3D W/CAD-10/07/2023 9:23:23 AM Ordering Physician:Lulu Kennedy Final Report: BILATERAL SCREENING MAMMOGRAM WITH COMPUTER-AIDED DETECTION AND TOMOSYNTHESIS TECHNIQUE: CC and MLO views were obtained. These mammographic images have been obtained using full-field digital technique. These mammographic images were interpreted with the benefit of computer-aided detection. Breast tomosynthesis was used in this interpretation. COMPARISON FILM: 10/03/22, 09/05/21, 06/15/20. FINDINGS: The breasts are heterogeneously dense, which may obscure small masses. IMPRESSION: There is no radiographic evidence for malignancy. ASSESSMENT: BI-RADS Category 1: Negative RECOMMENDATION: Routine screening mammogram in 1 year. A lay language report of this examination will be provided to the patient. CLOVER BURGESS M.D. Diagnostic Radiologist [email or web address] DSM/emelyn D& Transcribed: 3:[address]/Dictated by: Clover Burgess MD @ 10/08/2023 12:25:00 PM Signed by:?Clover Burgess MD @10/08/2023 9:34:30 PM (Electronic Signature)
== END 2023-10-07 09:00 | disposition home or self-care (01) ==
LOC: MAMMO 09:00
PROVIDERS: PCP Nurse Practitioner Family; Visit Provider Nurse Practitioner Family
DX: Z12.31 Encounter for screening mammogram for malignant neoplasm of breast (principal); R92.2 Inconclusive mammogram
CPT/HCPCS: 77063; 77067

== ENCOUNTER 2024-04-13 15:08 | Outpatient (CLI) | payer MEDICARE, BC, SELFPAY ==
--- OUTSIDE RECORDS SUMMARY | 2024-04-13 15:10 | XMS_ITS | Clinical Summary ---
Author Organization [facility] Address [place], [place] [address] Care Team Providers Care Sustainable Agriculture Faculty Name Role Phone Lulu Antonio NP Primary Care Provider +1- [phone] Allergies No known active allergies Medications Medication Sig Dispensed Refills Start Date End Date Status omeprazole (PRILOSEC) 20 mg Delayed-Release capsule Twice A Day 04/25/2020 Active multivitamin-minerals therapeutic (THERAGRAN-M) tablet Daily Acti ve Crsulfkq0-Xnpwch5-Kwgol therm. 112.5 billion cell cap Daily Active famotidine (PEPCID) 20 mg tablet Take 1 tablet by mouth once daily if needed. 0 05/27/2020 Active Social History Tobacco Use Types Packs/Day Years [...] Comments Blood Pressure 138/77 05/27/2020 3:46 PM YARN HANDLER Pulse 97 05/27/2020 3:46 PM YARN HANDLER Temperature 36.8 ??C (98.2 ??F) 02/02/2015 3:12 PM CD T Respiratory Rate 16 02/02/2015 3:12 PM CDT Oxygen Saturation 99% 05/27/2020 3:46 PM YARN HANDLER Inhaled Oxygen Concentration - - Weight 71.7 kg (158 lb) 05/27/2020 3:46 PM YARN HANDLER Height 172.7 cm (5' 8) 05/27/2020 3:46 PM YARN HANDLER Body Mass Index 24.02 05/27/2020 3:46 PM YARN HANDLER Plan of Treatment Health Maintenance Due Date [...] 65+ (1 of 1 - PCV) 2023 COVID-19 vaccine series ( season) 2024 04/11/2023, 04/20/2022, 01/15/2022, Additional history exists Influenza for age 65+ 02/16/2024 Procedures Procedure Name Priority Date/Time Associated Diagnosis Comments LOG RAFT WORKER THIN PREP PAP SCREEN IMAGED Routine 03/04/2019 2:00 PM CDT from Last 3 Months or Most Recently Relevant to Health Maintenance Results * LOG RAFT WORKER THIN PREP PAP SCREEN IMAGED (03/04/2019 2:00 PM CDT) Case Report Gynecologic Cytology Report ? Case: [id number] ? Authorizing Provider: ??Radha Mantilla, KRISTIN ? Collected: ? 03/04/2019 1400 ? Ordering Location: ? [facility] ?Received: ?03/06/2019 1127 ? First Screen: ?Bebo Canales ? Specimen: ?LOG RAFT WORKER ThinPrep Vial Screening, Cervical/Vaginal ? 03/12/2019 10:54 AM [facility] INTERPRETATION/ RESULT NEGATIVE FOR INTRAEPITHELIAL LESION OR MALIGNANCY (NIL) (none) 03/12/2019 10:54 AM [facility] IMEN ADEQUACY Satisfactory for evaluation No endocervical component seen 03/12/2019 10:54 AM [facility] HPV REQUEST HPV and PAP 03/12/2019 10:54 AM [facility] Last Pap Date 05/14/2016 03/12/2019 10:54 AM [facility] ENTRAL LABORATORY Last Pap Result NIL 9 10:54 AM [facility] Automated Review Successful 03/12/2019 10:54 AM [facility] Comment:Specimen processed s uccessfully by automated product safety officer device, ThinPrep Imaging System, [employer] ANCILLARY TESTING LOG RAFT WORKER HPV Ordered, Please see separate report 03/12/2019 10:54 AM [facility] Note The pap test is a [...] lesions. Cytology is screened and interpreted at [facility], Central Laboratory - [address], [place] [address] and [facility] - [address]; [place] [address] and [facility] - [address]; [place] [address] and [facility] [address]; [place] [address] 03/12/2019 10:54 AM CDT [facility]-C ENTRAL LABORATORY Other (Cervical/Vagina l) 03/04/2019 2:00 PM CDT 03/06/2019 11:27 AM CDT Radha Mantilla NP PATHOLOGY/[facility]TRAL LABORATORY [address] [place] [address], from Last 3 Months or Most Recently Relevant to Health Maintenance Care Teams Sustainable Agriculture Faculty Relationship Specialty Start Date End Date Lulu Antonio NP [address] [place] [address] PCP - General Emergency Medicine 05/16/23
--- NOTE | 2024-04-13 15:30 | MR_ITS ---
[address] [address] Phone:?[phone] Fax:?[phone] Referring Physician Information: Chago Perez M.D. [address] [facility] [address] Phone:?[phone] Fax:?[phone] Patient:Diane Goncalves D.O.B:?1960 Sex:?Female Phone:?[phone] [facility] MRN:?[id number] Exam Date:?04/13/2024 EXAM: MRI EXAMINATION OF THE RIGHT KNEE CLINICAL INFORMATION: Right knee pain. Limited range of motion. No specific injury. No history of surgery to this area. Possible medial meniscus tear. TECHNICAL INFORMATION: Coronal PD and STIR. Axial PD and T2 fat saturation. Sagittal PD and PD fat saturation images acquired. No prior studies for comparison. INTERPRETATION: Bones: No appreciable subchondral edema signal or cystic change. No evidence for an occult fracture/stress reaction. No evidence for AVN. No other abnormal bone marrow edema pattern is identified. Ligaments and tendons: Residua of a chronic sprain injury with associated thickening and mild irregularity involving the mid to proximal portion of the medial collateral ligament. The iliotibial band, fibular collateral ligament, biceps femoris tendon and popliteus tendon all are intact. The anterior cruciate ligament is intact without acute sprain or tear. Residua of a PCL sprain injury. Series 4 images 17 through 20 demonstrate low to moderate grade partial tearing involving the distal one third of the ligament. Extensor Mechanism: The patellar and quadriceps tendons are intact. The medial and lateral retinacula are intact. Knee Joint: There is a small knee joint effusion. There is a small popliteal cyst. There is no discrete loose body seen within the joint. Medial Compartment: There is tearing involving the undersurface and apical margin within the body of the medial meniscus. Suspected tiny flap fragment flipped just around the corner along side the periphery of the tibial plateau on series 8 image 18. There is a horizontal appearance of tearing throughout the posterior horn and into the posterior root insertion. No evidence for a parameniscal cyst. There is no focal chondral defect. Grade II chondromalacia involves the mid to peripheral central surfaces of the medial compartment. Lateral Compartment: Horizontal superior surface tearing involves the body of the lateral meniscus. Horizontal tearing continues involving the anterior and posterior horns. Tearing and fraying involves the far posterior horn and posterior root insertion without evidence for root avulsion injury. No displaced flap fragment or parameniscal cyst. There is a 1.1 x 1 cm segment of grade 3 and IV chondromalacia involving the central surface of the lateral tibial plateau. No other significant changes of chondromalacia. Patellofemoral articulation: There is no focal chondral defect. No other significant chondromalacia. CONCLUSION: 1. Tearing involves the body of the medial meniscus and continues throughout the posterior horn. Suspected tiny flap fragment flipped just around the corner peripheral to the tibial plateau at the level of the body. 2. Tearing of the body, anterior and posterior horns of the lateral meniscus. Additional tearing and fraying of the far posterior horn and posterior root insertion, without root avulsion injury. 3. Grade II medial compartment chondromalacia. There is a small to moderate- sized segment of grade III and IV chondromalacia of the lateral tibial plateau. 4. Grade 2 PCL sprain injury. Low to moderate grade partial tearing involves the distal one third of the ligament. This is likely more acute or subacute. The posterior lateral corner structures are intact. 5. Residua of a chronic MCL sprain injury. KES Electronically signed on 04/14/2024 7:20:00 AM by Vlad Cary M.D.
== END 2024-04-13 15:09 | disposition home or self-care (01) ==
LOC: MRI 15:09
PROVIDERS: PCP Nurse Practitioner Family; Visit Provider Orthopaedic Surgery Sports Medicine
DX: M25.561 Pain in right knee (principal); S83.241A Other tear of medial meniscus, current injury, right knee, initial encounter; S83.281A Other tear of lateral meniscus, current injury, right knee, initial encounter; S83.91XA Sprain of unspecified site of right knee, initial encounter; S83.411A Sprain of medial collateral ligament of right knee, initial encounter; M76.31 Iliotibial band syndrome, right leg
CPT/HCPCS: 73721

== ENCOUNTER 2024-04-20 08:52 | Outpatient (CLI) | payer MEDICARE, BC, SELFPAY ==
--- OUTSIDE RECORDS SUMMARY | 2024-04-20 08:55 | XMS_ITS | Clinical Summary ---
Author Organization [employer] [facility] Address [place], [place] [address] Care Team Providers Care Classified Advertising Manager Name Role Phone Lulu Antonio NP Primary Care Provider +1- [phone] Allergies No known active allergies Medications Medication Sig Dispensed Refills Start Date End Date Status omeprazole (PRILOSEC) 20 mg Delayed-Release capsule Twice A Day 04/25/2020 Active multivitamin-minerals therapeutic (THERAGRAN-M) tablet Daily Acti ve Lrggjhqj8-Lqvoph7-Cfzbk therm. 112.5 billion cell cap Daily Active [...] Comments Blood Pressure 138/77 05/27/2020 3:46 PM RN ADMISSIONS Pulse 97 05/27/2020 3:46 PM RN ADMISSIONS Temperature 36.8 ??C (98.2 ??F) 02/02/2015 3:12 PM CD T Respiratory Rate 16 02/02/2015 3:12 PM CDT Oxygen Saturation 99% 05/27/2020 3:46 PM RN ADMISSIONS Inhaled Oxygen Concentration - - Weight 71.7 kg (158 lb) 05/27/2020 3:46 PM RN ADMISSIONS Height 172.7 cm (5' 8) 05/27/2020 3:46 PM RN ADMISSIONS Body Mass Index 24.02 05/27/2020 3:46 PM RN ADMISSIONS Plan of Treatment Health Maintenance Due Date [...] Procedure Name Priority Date/Time Associated Diagnosis Comments MANAGER MARKET DEVELOPMENT THIN PREP PAP SCREEN IMAGED Routine 03/04/2019 2:00 PM CDT from Last 3 Months or Most Recently Relevant to Health Maintenance Results * MANAGER MARKET DEVELOPMENT THIN PREP PAP SCREEN IMAGED (03/04/2019 2:00 PM CDT) Case Report Gynecologic Cytology Report ? Case: [id number] ? Authorizing Provider: ??Radha Mantilla, KRISTIN ? Collected: ? 03/04/2019 1400 ? Ordering Location: ? [facility] ?Received: ?03/06/2019 1127 ? First Screen: ?Bebo Canales ? Specimen: ?MANAGER MARKET DEVELOPMENT ThinPrep Vial Screening, Cervical/Vaginal ? 03/12/2019 10:54 AM [facility] ENTRCT LABORATORY INTERPRETATION/ RESULT NEGATIVE FOR INTRAEPITHELIAL LESION OR MALIGNANCY (NIL) (none) 03/12/2019 10:54 AM [facility] IMEN ADEQUACY Satisfactory for evaluation No endocervical component seen 03/12/2019 10:54 AM [facility] HPV REQUEST HPV and PAP 03/12/2019 10:54 AM [facility] ENTRAL LABORATORY Last Pap Date 05/14/2016 03/12/2019 10:54 AM [facility] ENTRAL LABORATORY Last Pap Result NIL 9 10:54 AM [facility] Automated Review Successful 03/12/2019 10:54 AM [facility] ENTRCT LABORATORY Comment:Specimen processed s uccessfully by automated tow driver device, ThinPrep Imaging System, [employer] ANCILLARY TESTING MANAGER MARKET DEVELOPMENT HPV Ordered, Please see separate report 03/12/2019 10:54 AM [facility] Note The pap test is a [...] lesions. Cytology is screened and interpreted at [facility], Central Laboratory - [address], [place] [address] and [facility] - [address]; [place] [address] and [facility] - [address]; [place] [address] and [facility] [address]; [place] [address] 03/12/2019 10:54 AM CDT [facility] LABORATORY-C ENTRAL LABORATORY Other (Cervical/Vagina l) 03/04/2019 2:00 PM CDT 03/06/2019 11:27 AM CDT Radha Mantilla NP [facility]AL LABORATORY [address] [place] [address], from Last 3 Months or Most Recently Relevant to Health Maintenance Care Teams Classified Advertising Manager Relationship Specialty Start Date End Date Lulu Antonio NP [address] [place] [address] PCP - General Emergency Medicine 05/16/23
== END 2024-04-20 08:53 | disposition home or self-care (01) ==
PROVIDERS: PCP Nurse Practitioner Family; Visit Provider Nurse Practitioner Family
DX: Z01.818 Encounter for other preprocedural examination (principal)
CPT/HCPCS: 80053; 85025

== ENCOUNTER 2024-04-24 12:06 | Day surgery (SDC) | payer MEDICARE, BC, SELFPAY ==
[2024-04-24] VITALS (11 sets, daily range): BP systolic 95–122; BP diastolic 61–79; PULSE 70–92; RESP 10–16; TEMP 36–36.6; O2SAT 95–100; BMI 22.6
--- OUTSIDE RECORDS SUMMARY | 2024-04-24 12:08 | XMS_ITS | Clinical Summary ---
Author Organization [employer] [facility] Address [place], [place] [address] Care Team Providers Care Plant Physiology Teacher Name Role Phone Lulu Antonio NP Primary Care Provider +1- [phone] Allergies No known active allergies Medications Medication Sig Dispensed Refills Start Date End Date Status omeprazole (PRILOSEC) 20 mg Delayed-Release capsule Twice A Day 04/25/2020 Active multivitamin-minerals therapeutic (THERAGRAN-M) tablet Daily Acti ve Qlcbyhps2-Edvucv0-Plhqu therm. 112.5 billion cell cap Daily Active [...] Comments Blood Pressure 138/77 05/27/2020 3:46 PM DISCHARGE RN Pulse 97 05/27/2020 3:46 PM DISCHARGE RN Temperature 36.8 ??C (98.2 ??F) 02/02/2015 3:12 PM CD T Respiratory Rate 16 02/02/2015 3:12 PM CDT Oxygen Saturation 99% 05/27/2020 3:46 PM DISCHARGE RN Inhaled Oxygen Concentration - - Weight 71.7 kg (158 lb) 05/27/2020 3:46 PM DISCHARGE RN Height 172.7 cm (5' 8) 05/27/2020 3:46 PM DISCHARGE RN Body Mass Index 24.02 05/27/2020 3:46 PM DISCHARGE RN Plan of Treatment Health Maintenance Due Date [...] Procedure Name Priority Date/Time Associated Diagnosis Comments RUSTIC FENCE BUILDER THIN PREP PAP SCREEN IMAGED Routine 03/04/2019 2:00 PM CDT from Last 3 Months or Most Recently Relevant to Health Maintenance Results * RUSTIC FENCE BUILDER THIN PREP PAP SCREEN IMAGED (03/04/2019 2:00 PM CDT) Case Report Gynecologic Cytology Report ? Case: [id number] ? Authorizing Provider: ??Radha Mantilla, KRISTIN ? Collected: ? 03/04/2019 1400 ? Ordering Location: ? [facility] ?Received: ?03/06/2019 1127 ? First Screen: ?Bebo Canales ? Specimen: ?RUSTIC FENCE BUILDER ThinPrep Vial Screening, Cervical/Vaginal ? 03/12/2019 10:54 AM [facility] ENTRWV LABORATORY INTERPRETATION/ RESULT NEGATIVE FOR INTRAEPITHELIAL LESION OR MALIGNANCY (NIL) (none) 03/12/2019 10:54 AM [facility] IMEN ADEQUACY Satisfactory for evaluation No endocervical component seen 03/12/2019 10:54 AM [facility] HPV REQUEST HPV and PAP 03/12/2019 10:54 AM [facility] ENTRAL LABORATORY Last Pap Date 05/14/2016 03/12/2019 10:54 AM [facility] ENTRAL LABORATORY Last Pap Result NIL 9 10:54 AM [facility] Automated Review Successful 03/12/2019 10:54 AM [facility] Comment:Specimen processed s uccessfully by automated director of digital technology device, ThinPrep Imaging System, [employer] ANCILLARY TESTING RUSTIC FENCE BUILDER HPV Ordered, Please see separate report 03/12/2019 10:54 AM [facility] Note The pap test is a [...] lesions. Cytology is screened and interpreted at [facility], Central Laboratory - [address], [place] [address] and [facility] - [address]; [place] [address] and [facility] - [address]; [place] [address] and [facility] [address]; [place] [address] 03/12/2019 10:54 AM CDT [facility] LABORAT[facility]-C ENTRAL LABORATORY Other (Cervical/Vagina l) 03/04/2019 2:00 PM CDT 03/06/2019 11:27 AM CDT Radha Mantilla NP [facility]-CENTRAL LABORATORY [address] [place] [address], from Last 3 Months or Most Recently Relevant to Health Maintenance Care Teams Plant Physiology Teacher Relationship Specialty Start Date End Date Lulu Antonio NP [address] [place] [address] PCP - General Emergency Medicine 05/16/23
[2024-04-24] MEDS: SODIUM CHLORIDE 0.9 % (FLUSH) 10 ML SYRINGE IVF (12:40)
[2024-04-24] MEDS: 0.9 % SODIUM CHLORIDE 1000 ml 500 ML 75 ML IV (13:02)
--- NOTE | 2024-04-24 13:19 | W.PM.H&PU ---
History & Physical Update History & Physical Update H&P Reviewed and patient assessed: No changes noted
[2024-04-24] MEDS: CEFAZOLIN 2 GM in 0.9 % SODIUM CHLORIDE Mini-bag 100 ML IVPB (13:21)
--- NOTE | 2024-04-24 13:29 | W.ANESCHARGE ---
Anesthesia Charges Start Date/Time Anesthesia Start Date: 04/24/24 Anesthesia Start Time: 13:02 Stop Date/Time Anesthesia Stop Date: 04/24/24 Anesthesia Stop Time: 14:07
[2024-04-24] MEDS: ROPIVACAINE 0.5% 30 ML 150 MG INJECTION (13:51)
--- NOTE | 2024-04-24 13:52 | PM.ORPRC ---
Procedure Note Date of procedure: 04/24/24 Procedure: PREOPERATIVE DIAGNOSIS: 1. Right knee medial and lateral meniscus tear POSTOPERATIVE DIAGNOSIS: 1. Right knee medial and lateral meniscus tear 2. 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 Right knee arthroscopic partial medial and lateral meniscectomy SURGEON: Chago Perez M.D. HOSPITAL CLEANING SPECIALIST: ALEXANDRA Oconnell. Of note, an family readiness support assistant was critical for this case to aid in patient positioning, knee manipulation, instrument exchange, and closure. ANESTHESIA: Spinal EBL: 5 mL TOURNIQUET: 30 min at 250 torr COMPLICATIONS: None evident INDICATIONS: The patient is a pleasant 63-year-old female who has experienced right knee pain particularly with any twisting or turning. Physical exam was concerning for medial meniscus tear, this was confirmed on MRI. Additionally, attempted nonoperative management has been tried, and failed. Thus, surgery was recommended. FINDINGS: Near full-thickness lateral meniscus tear along the posterior root. Also more complex tearing extending to the posterior horn and midbody. Grade 4 chondromalacia lateral tibial plateau centrally over region measuring 5 by 18 mm in the M-L and A-P directions, respectively. Complex tearing posterior horn to midbody medial meniscus. The posterior root appeared intact. Grade 2 chondromalacia medial femoral condyle. Relatively healthy articular cartilage patellofemoral compartment. DESCRIPTION OF PROCEDURE: After a thorough discussion of risks, benefits, and alternatives, the patient was brought to the operating room and placed upon the operating table. Induction of anesthesia was undertaken as previously noted. 1 g IV Ancef was administered within 1 hr of incision preoperatively. Appropriate time-out was performed identifying proper patient, site, and procedure. The right lower extremity was prepped and draped in the appropriate sterile fashion using ChloraPrep. The limb was exsanguinated and tourniquet inflated. Anterolateral and anteromedial portals were established with an 11 blade, and a diagnostic arthroscopy was performed. This identified the findings as noted above. Following the diagnostic arthroscopy, a partial medial and lateral menisectomy was performed with the combination of basket forceps, [place] cautery, and a motorized shaver. Following this, the meniscus was re-probed and found to be stable. Approximately 20-25% of the overall lateral meniscus required resection/and 30-33% of the medial meniscus. At this stage, the shaver was reinserted into the suprapatellar pouch and all remaining meniscal debris was evacuated. Instruments were removed, excess fluid was drained, and closure performed with 4-0 Monocryl with Steri-Strips. Dressings were applied, the tourniquet deflated, and the patient was awoken from anesthesia and transferred to the PACU in stable condition. PLAN: 1. Weightbear as tolerated operative extremity. Crutch / walker ambulation assistance PRN. 2. Ice, acetominophen and/or ibuprofen, and oxycodone for pain as needed. 3. Knee range of motion and quad sets/straight leg raise regularly 4. Follow up with PA visit in 1-2 weeks for a wound check and possibly to initiate physical therapy.
--- NOTE | 2024-04-24 14:08 | W.ANESCHARGE ---
Anesthesia Charges Start Date/Time Anesthesia Start Date: 04/24/24 Anesthesia Start Time: 13:02 Stop Date/Time Anesthesia Stop Date: 04/24/24 Anesthesia Stop Time: 14:07
== END 2024-04-24 15:45 | disposition home or self-care (01) ==
LOC: OR 12:07
PROVIDERS: PCP Nurse Practitioner Family; Visit Provider Orthopaedic Surgery Sports Medicine
PROC: (CPT 29870; principal; 2024-04-24 13:30)
DX: S83.281A Other tear of lateral meniscus, current injury, right knee, initial encounter (principal); S83.231A Complex tear of medial meniscus, current injury, right knee, initial encounter
CPT/HCPCS: 29880; 01400; J0690; J1100; J1885; J2250; J2405; J2704; J2795; J3010; J7030

== ENCOUNTER 2024-10-28 14:43 | Outpatient (CLI) | payer MEDICARE, BC, SELFPAY ==
--- NOTE | 2024-10-28 15:00 | CRLHL7_ITS ---
For Patients: As a result of the Century Cures Act, medical imaging exams and procedure reports are released immediately into your electronic medical record. You may view this report before your referring provider. If you have questions, please contact your health care provider. XR DXA Bone Mineral Density (BMD) Current height (in): 67.0. Weight (lb): 143.0. Menopause age: 50. Ethnicity: White. 1. Have you had a previous hip or vertebral fracture? No. 2. Have you had any fractures during your adult life which did not result from significant trauma (e.g., auto accident)? No. 3. Did either of your parents have a hip fracture? No. 4. Do you smoke? No. 5. Have you ever taken Glucocorticoids? No. 6. Do you have rheumatoid arthritis? No. 7. Do you have secondary osteoporosis? No. 8. Do you drink 3 or more alcoholic drinks per day? No. 9. Are you being treated for osteoporosis? No. 10. Have you ever taken any of the following medications: Actonel, Evista, Fosamax, Miacalcin, Reclast, Boniva, Forteo, HRT (i.e. estrogen/hormone therapy), Protelos, Prolia, Vitamin D, Calcium, other ??? please specify. ANSWER: Yes, Vitamin D, Calcium. 11. Do you have any of the following medical conditions: Anorexia or bulimia, asthma or emphysema, end stage renal disease, hyperparathyroidism, any seizure disorders, cancer, inflammatory bowel diseases, hysterectomy, other ??? please specify. ANSWER: No. 12. What was your maximum height (inches)? 68. 13. Do you perform weight bearing exercise regularly? Yes. 14. Do you regularly consume dairy products? Yes. 15. Do you drink caffeinated beverages? Yes. If female: 16. At what age did your period start? 13. 17. Are you premenopausal? No. 18. How many full term pregnancies have you had? 2. 19. Have you ever missed your period for more than 6 months in a row (not including or menopause)? No. TECHNIQUE: Bone mineral density study was performed using the [employer]. FINDINGS: The results of the study expressed as bone mineral density (BMD) are as follows: Lumbar spine L1 to L4: BMD: 1.265 g/cm2. T-score: 2.0. Z-score: 3.8. Neck Left: BMD: 0.682 g/cm2. T-score: -1.5 . Z-score: 0.1. Right: BMD: 0.693 g/cm2. T-score: -1.4 . Z-score: -0.2. Total Left: BMD: 0.846 g/cm2. T-score: -0.8 . Z-score: 0.5. Right: BMD: 0.887 g/cm2. T-score: -0.5 . Z-score: 0.8. IMPRESSION: Osteopenia. *Comparison exams done prior to 11/2019 were performed on different unit, [employer]. COMPARISON: Compared with scan of 10/24/2022, the bone mineral density has decreased by 4.1 percent at the spine and increased by 7.4 percent at the hip. Dean Rajan M.D. Diagnostic Radiologist [email or web address] HARINI/alba JR/Dictated by: Dean Rajan MD @ 10/29/2024 9:33:00 AM (Electronically Signed)
== END 2024-10-28 14:44 | disposition home or self-care (01) ==
LOC: RAD 14:44
PROVIDERS: PCP Nurse Practitioner Family; Visit Provider Nurse Practitioner Family
DX: M85.80 Other specified disorders of bone density and structure, unspecified site (principal); M85.89 Other specified disorders of bone density and structure, multiple sites; Z78.0 Asymptomatic menopausal state
CPT/HCPCS: 77080

== ENCOUNTER 2024-11-16 10:29 | Outpatient (CLI) | payer MEDICARE, BC, SELFPAY ==
--- NOTE | 2024-11-16 10:45 | CRLHL7_ITS ---
For Patients: As a result of the Century Cures Act, medical imaging exams and procedure reports are released immediately into your electronic medical record. You may view this report before your referring provider. If you have questions, please contact your health care provider. INDICATION: BILATERAL SCREENING MAMMOGRAM, ASYMPTOMATIC 64 Y/O FEMALE COMPARISON: 10/07/2023, 10/03/2022, 09/05/2021 TECHNIQUE: Digital mammogram in CC and MLO projections including computer-aided detection (CAD) and tomosynthesis. BREAST COMPOSITION: There are scattered areas of fibroglandular density. FINDINGS: No suspicious findings. ASSESSMENT: BI-RADS 2 Benign RECOMMENDATION: Annual screening mammogram. A lay language report of this examination will be provided to the patient. Dictated by: Dean Rajan MD @ 11/24/2024 12:07:18 (Electronically Signed)
== END 2024-11-16 10:30 | disposition home or self-care (01) ==
LOC: MAMMO 10:31
PROVIDERS: PCP Nurse Practitioner Family; Visit Provider Nurse Practitioner Family
DX: Z12.31 Encounter for screening mammogram for malignant neoplasm of breast (principal)
CPT/HCPCS: 77063; 77067

== ENCOUNTER 2025-02-22 13:06 | Emergency (ER) | payer MEDICARE, BC, SELFPAY ==
[2025-02-22 13:33] VITALS: BP 117/73; PULSE 76; RESP 16; TEMP 36.6; O2SAT 98; BMI 21.7
--- NOTE | 2025-02-22 14:09 | ED.ABDPAIN ---
HPI - Abdominal Pain General Time Seen by Provider: 14:09 Date Seen: 02/22/25 Chief Complaint: Abdominal Pain Stated Complaint: Abdominal Pain Time Seen by Provider: 02/22/25 14:08 Source: patient, family, RN notes reviewed, old records reviewed and other (Lulu Manzano, nurse practitioner) Mode of arrival: ambulatory Limitations: no limitations History of Present Illness HPI narrative: Magalis is a very pleasant 64-year-old female with history of appendectomy in 2019 who comes to the emergency room for evaluation of right lower quadrant pain. She states that ever since she had her appendectomy she has had intermittent discomfort in the right lower quadrant and is never really felt like she was back to normal. On Saturday night February 19 she had the onset of right lower quadrant pain. She notes that over the next 48 hours she had increasing discomfort to the point where she had pain even when rolling over in bed. Pain seems to be exacerbated by movement or lifting her right leg. She has had no changes in her bowel movements. She has not had fever or chills dysuria hematuria. He has been able to eat normally. She does endorse some slight bloating. She has not taken anything for pain. Lying flat on her back was her best position overnight. Patient notes family history in her father of non-Hodgkin's lymphoma. Related Data Home Medications ?Medication ?Instructions ?Recorded ?Confirmed ascorbic acid (vitamin C) 500 mg 1 g PO DAILY 03/02/22 02/22/25 tablet multivitamin (Multiple Vitamins 1 tab PO QDAY 03/02/22 02/22/25 tablet) Lactobacillus acidophilus 1 tab PO 04/03/22 02/22/25 calcium 600 mg (as 2 cap PO 04/03/22 02/22/25 carbonate)-vitamin D3 12.5 mcg (500 unit) capsule (Calcium with Vit D3) ibuprofen 200 mg tablet 200 mg PO PRN 04/03/22 02/22/25 Previous Rx's ?Medication ?Instructions ?Recorded hydrocodone 5 mg-acetaminophen 325 1 tab PO Q4-6H PRN pain #10 tabs 02/22/25 mg tablet Allergies Allergy/AdvReac Type Severity Reaction Status Date / Time No Known Drug Allergies Allergy Verified 02/22/25 13:32 Review of Systems Status of ROS Reports: 10 or more systems reviewed and unremarkable except as noted in History and below Const Denies: fever or chills ENMT Denies: neck pain or nasal congestion Cardio Denies: chest pain or lightheadedness Resp Denies: cough GI Reports: abdominal pain; Denies: nausea, vomiting, diarrhea, constipation or blood in stool Denies: painful urination or urinary frequency Musculo Denies: back pain, neck pain or extremity pain Integ/Breast Denies: rash Neuro Denies: headache PFSH PFSH Medical History Stress fracture of left femur ?M84.352A - Stress fracture, left femur, initial encounter for fracture (ICD-10) Sprain of posterior cruciate ligament of right knee ?S83.521A - Sprain of posterior cruciate ligament of right knee, initial encounter (ICD-10) Trochanteric bursitis of right hip ?M70.61 - Trochanteric bursitis, right hip (ICD-10) Small bowel obstruction ?K56.609 - Unspecified intestinal obstruction, unspecified as to partial versus complete obstruction (ICD-10) Radiculopathy affecting upper extremity ?M54.10 - Radiculopathy, site unspecified (ICD-10) Postoperative ileus ?K91.89 - Other postprocedural complications and disorders of digestive system (ICD-10) ?K56.7 - Ileus, unspecified (ICD-10) Partial obstruction of small intestine ?K56.600 - Partial intestinal obstruction, unspecified as to cause (ICD-10) Osteoarthritis of cervical spine without myelopathy ?M47.812 - Spondylosis without myelopathy or radiculopathy, cervical region (ICD-10) Osteoarthritis of cervical spine ?M47.812 - Spondylosis without myelopathy or radiculopathy, cervical region (ICD-10) Foraminal stenosis of cervical region ?M48.02 - Spinal stenosis, cervical region (ICD-10) Dyspepsia ?R10.13 - Epigastric pain (ICD-10) Displaced fracture of seventh cervical vertebra (01/2015) ?S12.600A - Unspecified displaced fracture of seventh cervical vertebra, initial encounter for closed fracture (ICD-10) Colitis ?K52.9 - Noninfective gastroenteritis and colitis, unspecified (ICD-10) Back pain ?M54.9 - Dorsalgia, unspecified (ICD-10) Surgical History Status post meniscectomy (04/24/24) ?Z98.890 - Other specified postprocedural states (ICD-10) Status post medial meniscectomy of knee (06/06/22) ?Z98.890 - Other specified postprocedural states (ICD-10) History of colonoscopy ?Z98.890 - Other specified postprocedural states (ICD-10) History of appendectomy ?Z90.49 - Acquired absence of other specified parts of digestive tract (ICD-10) History of delivery ?Z98.891 - History of uterine scar from previous surgery (ICD-10) Family History Mother COPD (chronic obstructive pulmonary disease) Osteoporosis Rheumatoid arthritis Lung disease Father Non-Hodgkin lymphoma Social History Narrative: . 2 children. Retired. Alcohol rare. Non-smoker. No illicit drug use. Smoking Status: Never smoker Do you use any of these nicotine containing products: None How often do you have a drink containing alcohol: 2-3 times a week Alcohol type: wine and hard liquor How often do you have six or more drinks on one occasion: Weekly AUDIT-C Alcohol total score: 6 Non-prescribed substance use: denies use Caffeine: Yes (daily coffee) Are you using contraception or practicing any form of control: No service: No Exam Narrative: Exam Narrative: Patient is alert and oriented. No acute distress. External ears eyes nose clear. Heart with regular rate and rhythm lungs are clear. Abdomen shows tenderness in the right lower abdomen but superior to McBurney's point. No pain right upper quadrant. No masses are palpated. Does not have pain with movement at the bed or hitting the bottom of her heel. Obvious discomfort when getting into bed and lifting her right leg. Const: Vital Signs, click to edit/add: Vital Signs - 24 hr 02/22/25 13:33 02/22/25 15:46 Temperature 97.9 F 97.1 F L Pulse Rate [Pulse Oximeter] 76 64 Respiratory Rate 16 18 Blood Pressure [Ri ght Upper Arm] 117/73 132/74 Pulse Oximetry 98 95 Oxygen Delivery Me thod Room Air Room Air Documenting provider has reviewed patient's vital signs: yes Course Course ED Course: Differential diagnosis includes but is not limited to partial small-bowel obstruction, colitis, ovarian pathology, muscular strain, ureteral colic kidney stone. At this time I do think patient requires abdominal CT given her history and exam here today. Will also get CBC, comprehensive, CRP urinalysis done. Will place IV and give Toradol 15 mg IV for discomfort. Reevaluation(s) Reevaluation #1: Further examination further examination notes no lymphadenopathy cervical chain axillary or groin. Reevaluation #2: Some mild improvement of discomfort. Patient notes that at rest she really has no significant pain. Consultations Consultation #1: Consult with , surgical consult in regards to CT which does show increased lymphadenopathy andres aortic in association with possible soft tissue mass. Surgeon was able to speak with Radiology. agreeable to do biopsy if directed so by Hematology-Oncology. Recommendation for a consult, possible MRI versus PET-CT. Vital Signs Vital signs: Initial Vital Signs Temperature 97.9 F 02/22/25 13:33 Temperature Source Temporal Artery Scan 02/22/25 13:33 Pulse Rate 76 02/22/25 13:33 Respiratory Rate 16 02/22/25 13:33 Blood Pressure 117/73 02/22/25 13:33 Blood Pressure Mean 87 02/22/25 13:33 Pulse Oximetry 98 02/22/25 13:33 Oxygen Delivery Method Room Air 02/22/25 13:33 Vital Signs Temperature 97.9 F 02/22/25 13:33 Pulse Rate 76 02/22/25 13:33 Respiratory Rate 16 02/22/25 13:33 Blood Pressure 117/73 02/22/25 13:33 Pulse Oximetry 98 02/22/25 13:33 Oxygen Delivery Method Room Air 02/22/25 13:33 Temperature 97.1 F L 02/22/25 15:46 Pulse Rate 64 02/22/25 15:46 Respiratory Rate 18 02/22/25 15:46 Blood Pressure 132/74 02/22/25 15:46 Pulse Oximetry 95 02/22/25 15:46 Oxygen Delivery Method Room Air 02/22/25 15:46 Medications Administered Medications: Discontinued Medications Generic Name Dose Route Start Last Admin Trade Name Freq PRN Reason Stop Dose Admin Sodium Chloride 500 mls @ 500 mls/hr 02/22/25 14:15 02/22/25 16:15 0.9 % Sodium Chloride 500 Ml IV 02/22/25 15:14 Infused .Q1H ZANE Infusion Ketorolac Tromethamine 15 mg 02/22/25 14:15 02/22/25 14:28 Ketorolac 15 Mg/Ml Inj IVP 02/22/25 14:16 15 mg ONCE ONE Administration MDM - Abdominal Pain MDM Narrative Medical decision making narrative: 1. Abdominal pain -the area right lower quadrant noted santos seen with no other pathology. On the left she has andres aortic lymphadenopathy, possible soft tissue mass encompassing common iliac vein. I did consult with surgery. Recommend heme Onc consult with likely further imaging. For pain, may use ibuprofen as needed. For pain not relieved by ibuprofen suggest [place]ly 10/3250 tablet p.o. q.4-6 hours p.r.n. pain 10. I did have to send this to pharmacy as we had none available in our [employer] machine. Etiologies include possible infection although white count is normal in she is absent of fever or signs of sepsis. Additionally lymphoma is in the differential but again white count normal with normal differential 2. Disposition-home at this time. Await phone call from heme Onc clinic tomorrow morning. Recommend returning to the ER for worsening symptoms and as needed. Medical Records Attestation: I reviewed the patient's medical records. Lab Data Attestation: I reviewed the patient's lab results. Labs: Lab Results 02/22/25 02/22/25 Range/Units 14:15 14:26 WBC 5.01 (4.50-11.00) K/uL RBC 4.58 (4.00-5.20) m/uL Hgb 13.8 (12.0-16.0) gm/dL Hct 42.3 (33.0-51.0) % MCV 92 (80-100) fL MCH 30 (26-34) pg MCHC 33 (32-36) gm/dL RDW Coeff of Sung 12.0 (11.5-15.5) % Plt Count 241 (140-440) K/uL Neut % (Auto) 58.5 (42.0-72.0) % Lymph % (Auto) 29.7 (20-44) % Mobile % (Auto) 8.0 (0.0-11.0) % Eos % (Auto) 2.4 (0.0-7.0) % Baso % (Auto) 0.6 (0.0-3.0) % Neut # (Auto) 2.93 (1.7-7.0) K/uL Lymph # (Auto) 1.49 (0.90-2.90) K/uL Mobile # (Auto) 0.40 (0.00-0.90) K/UL Eos # (Auto) 0.12 (0.00-0.50) K/uL Baso # (Auto) 0.03 (0.00-0.30) K/uL Abs Immat Gran (auto) 0.04 (0.00-0.30) K/uL Imm/Tot Granulo (auto) 0.8 % Sodium 138 (135-149) mmol/L Potassium 4.2 (3.6-5.1) mmol/L Chloride 101 (96-114) mmol/L Carbon Dioxide 30 (20-32) mmol/L Anion Gap 7 (7-15) mEq/L BUN 17 (7-30) mg/dL Creatinine 0.7 (0.5-1.5) mg/dL Estimated Creat Clear 55.82 Estimated GFR 95 ml/min Glucose 86 (60-115) mg/dL Calcium 9.5 (8.4-10.6) mg/dL Total Bilirubin 0.8 (0.1-1.5) mg/dL AST 37 H (12-35) U/L ALT 17 (4-35) U/L Alkaline Phosphatase 82 (40-150) U/L C-Reactive Protein < 0.5 L (0.5-1.0) mg/dL Total Protein 7.5 (6.0-8.3) g/dL Albumin 4.4 (3.3-5.0) g/dL Urine Color Yellow (Yellow) Urine Appearance Clear (Clear) Urine pH 7.0 (5.0-8.5) Ur Specific [place] 1.020 (1.000-1.030) Urine Protein Negative (Negative) Urine Glucose (UA) Negative (Negative) Urine Ketones Negative (Negative) Urine Blood Negative (Negative) Urine Nitrite Negative (Negative) Urine Bilirubin Negative (Negative) Urine Urobilinogen 0.2 (0.2-1.0) Ur Leukocyte Esterase Negative (Negative) Urine RBC 0-2 (0-2) Urine WBC 0-2 (0-5) Ur Squamous Epith Cells Few (None-Few) Urine Bacteria None (None) Imaging Data CT scan - abdomen: Attestation: I have reviewed the pertinent imaging results. Radiologist's impression: Lower chest: The visualized lower lungs are aerated. No pleural or pericardial effusion. ABDOMEN: Liver: Normal enhancement. Hepatic cyst. Subcentimeter hypodensities are too small to characterize however statistically represent cysts. Gallbladder and biliary: Normal gallbladder without radiopaque stone. Normal caliber bile ducts. Spleen: Normal size and enhancement. Pancreas: Normal enhancement without peripancreatic inflammatory changes or ductal dilatation. Adrenal glands: Normal adrenal glands. Kidneys and ureters: Normal enhancement. No radio-opaque calculi. No hydroureteronephrosis. GI tract: The stomach is relatively decompressed. Normal caliber small and large bowel loops. Normal appendix containing multiple appendicoliths versus calcified suture material in the setting of prior appendectomy. Colonic diverticulosis without diverticulitis. Vascular structures: Normal caliber aorta with atherosclerotic calcifications. Lymph nodes: Left periaortic lymphadenopathy measuring up to 25 by 31 millimeters. This lifts the aorta from the adjacent vertebral bodies. Associated asymmetric soft tissue involving the left pelvic sidewall at the level of the SI joint, axial images 85-111. Peritoneum: No free air, free fluid, or focal drainable fluid collection. PELVIS: Genitourinary system: Normal urinary bladder. Age-appropriate uterus. SKELETAL STRUCTURES AND SOFT TISSUES: Multilevel lumbar spondylosis. 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 Scattered areas of bony demineralization, similar compared to the 2021 exam. IMPRESSION: 1. Left periaortic lymphadenopathy measuring up to 25 by 31 millimeters. This lifts the aorta from the adjacent vertebral bodies. Associated asymmetric soft tissue involving the left pelvic sidewall at the level of the SI joint incompletely characterized however differential considerations include underlying lymphoma, malignancy with spread to the left ovarian chain drainage pathway, or less likely infectious origin. Recommend correlation with patient clinical history for underlying known malignancy. In the absence of underlying known malignancy, recommend hematology consultation and potential tissue sampling. 2. Normal appendix containing multiple appendicoliths versus calcified suture material in the setting of prior appendectomy. Discharge Plan Discharge Clinical Impression: Abdominal pain, Intra-abdominal lymphadenopathy Patient Disposition: Home, Self-Care Condition: Improved Additional Instructions: 1. Your name and phone number will be given to the hematology/oncology clinic. You should expect a phone call sometime tomorrow morning for an appointment. 2. Ibuprofen may be used for abdominal pain. Pain not relieved by ibuprofen you may use [place] also known as Tylenol and hydrocodone sparingly. Note that you should not drive if using this medication is hydrocodone is a narcotic. Also has a tendency to cause constipation so please use a stool softener as well. 3. Return to the emergency room for increasing pain, fever, worsening symptoms and as needed. Unfortunately we did not have Waverly available in our vending machine. I have sent this medication to your pharmacy. Prescriptions: New hydrocodone-acetaminophen 5-325 mg tablet 1 tab PO Q4-6H PRN (Reason: pain) Qty: 10 0RF No Action ascorbic acid (vitamin C) 500 mg tablet 1 g PO DAILY multivitamin [Multiple Vitamins] Tablet 1 tab PO QDAY ibuprofen 200 mg tablet 200 mg PO PRN Lactobacillus acidophilus 1 tab PO calcium carbonate-vitamin D3 [Calcium 600 with Vitamin D3] 600 mg-12.5 mcg (500 unit) capsule 2 cap PO Follow Up/Referrals: Lulu Antonio, HYDROPONICS WORKER, RESEARCH INSTRUCTOR [Primary Care Provider, Family Practice] Stand Alone Forms: [employer] Info Instructions
--- NOTE | 2025-02-22 14:15 | CRLHL7_ITS ---
For Patients: As a result of the Century Cures Act, medical imaging exams and procedure reports are released immediately into your electronic medical record. You may view this report before your referring provider. If you have questions, please contact your health care provider. INDICATION: RLQ ABD PAIN TECHNIQUE: CT abdomen and pelvis acquired with 70 cc Isovue 370 IV contrast. COMPARISON: March 2022. FINDINGS: Lower chest: The visualized lower lungs are aerated. No pleural or pericardial effusion. ABDOMEN: Liver: Normal enhancement. Hepatic cyst. Subcentimeter hypodensities are too small to characterize however statistically represent cysts. Gallbladder and biliary: Normal gallbladder without radiopaque stone. Normal caliber bile ducts. Spleen: Normal size and enhancement. Pancreas: Normal enhancement without peripancreatic inflammatory changes or ductal dilatation. Adrenal glands: Normal adrenal glands. Kidneys and ureters: Normal enhancement. No radio-opaque calculi. No hydroureteronephrosis. GI tract: The stomach is relatively decompressed. Normal caliber small and large bowel loops. Normal appendix containing multiple appendicoliths versus calcified suture material in the setting of prior appendectomy. Colonic diverticulosis without diverticulitis. Vascular structures: Normal caliber aorta with atherosclerotic calcifications. Lymph nodes: Left periaortic lymphadenopathy measuring up to 25 by 31 millimeters. This lifts the aorta from the adjacent vertebral bodies. Associated asymmetric soft tissue involving the left pelvic sidewall at the level of the SI joint, axial images 85-111. Peritoneum: No free air, free fluid, or focal drainable fluid collection. PELVIS: Genitourinary system: Normal urinary bladder. Age-appropriate uterus. SKELETAL STRUCTURES AND SOFT TISSUES: Multilevel lumbar spondylosis. 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 Scattered areas of bony demineralization, similar compared to the 2021 exam. IMPRESSION: 1. Left periaortic lymphadenopathy measuring up to 25 by 31 millimeters. This lifts the aorta from the adjacent vertebral bodies. Associated asymmetric soft tissue involving the left pelvic sidewall at the level of the SI joint incompletely characterized however differential considerations include underlying lymphoma, malignancy with spread to the left ovarian chain drainage pathway, or less likely infectious origin. Recommend correlation with patient clinical history for underlying known malignancy. In the absence of underlying known malignancy, recommend hematology consultation and potential tissue sampling. 2. Normal appendix containing multiple appendicoliths versus calcified suture material in the setting of prior appendectomy. Please note that all CT scans at this facility use dose modulation, iterative reconstruction, and/or weight-based dosing when appropriate to reduce radiation dose to as low as reasonably achievable. Dictated by Dean Torres MD @ 02/22/2025 3:41:58 PM (Electronically Signed)
[2025-02-22] MEDS: 0.9 % SODIUM CHLORIDE 500 ML 500 ML IV (14:30)
[2025-02-22 14:50] LABS: Hematocrit* 42.3 % (33.0-51.0); Hemoglobin* 13.8 gm/dL (12.0-16.0); Immature Granulocytes Abs Auto 0.04 K/uL (0.00-0.30); Immature Granulocytes Pct Auto 0.8 %; Lymphocytes Absolute Auto 1.49 K/uL (0.90-2.90); Mean Corpuscular HGB Conc 33 gm/dL (32-36); Mean Corpuscular Hemoglobin 30 pg (26-34); Mean Corpuscular Volume 92 fL (80-100); RDW Coefficient of Variation % 12.0 % (11.5-15.5); Red Blood Count* 4.58 m/uL (4.00-5.20); Slide Review Reflex No; White Blood Count* 5.01 K/uL (4.50-11.00)
[2025-02-22 14:56] LABS: Albumin* 4.4 g/dL (3.3-5.0); Chloride* 101 mmol/L (96-114); Potassium* 4.2 mmol/L (3.6-5.1); Sodium* 138 mmol/L (135-149)
[2025-02-22 14:59] LABS: Alanine Aminotransferase* 17 U/L (4-35); Anion Gap 7 mEq/L (7-15); Aspartate Amino Transferase* 37 U/L (12-35); Bilirubin Total* 0.8 mg/dL (0.1-1.5); Blood Urea Nitrogen* 17 mg/dL (7-30); Carbon Dioxide* 30 mmol/L (20-32); Creatinine* 0.7 mg/dL (0.5-1.5); Est. Creatinine Clearance* 55.82; Estimated Glomerular Filt Rate 95 ml/min
[2025-02-22 15:00] LABS: Alkaline Phosphatase* 82 U/L (40-150); Calcium* 9.5 mg/dL (8.4-10.6); Glucose* 86 mg/dL (60-115); Total Protein* 7.5 g/dL (6.0-8.3)
[2025-02-22 15:40] LABS: Appearance Urine Clear (Clear)
[2025-02-22 15:46] VITALS: BP 132/74; PULSE 64; RESP 18; TEMP 36.2; O2SAT 95
== END 2025-02-22 16:58 | disposition home or self-care (01) ==
PROVIDERS: Emergency Provider Family Medicine; PCP Nurse Practitioner Family
DX: R10.31 Right lower quadrant pain (principal); R59.0 Localized enlarged lymph nodes
CPT/HCPCS: 36415; 74177; 80053; 81001; 85025; 86140; 96374; 99284; J1885; J7030; Q9967

== ENCOUNTER 2025-02-24 08:02 | Outpatient (CLI) | payer MEDICARE, BC, SELFPAY ==
--- NOTE | 2025-02-24 08:30 | CRLHL7_ITS ---
For Patients: As a result of the Century Cures Act, medical imaging exams and procedure reports are released immediately into your electronic medical record. You may view this report before your referring provider. If you have questions, please contact your health care provider. Indication: Localized ENLARGED LYMPH NODES. INTRA ABD Lymphadenopathy SEEN ON PREV A/P CT Technique: CT Chest 75CC ISOVUE 370 intravenous contrast Please note that all CT scans at this facility use dose modulation, iterative reconstruction, and/or weight-based dosing when appropriate to reduce radiation dose to as low as reasonably achievable. Comparison: CT abdomen and pelvis 02/22/2025 Findings: Sub cm bilateral thyroid nodules considered incidental. No enlarged mediastinal, hilar or axillary lymph nodes. Breast parenchyma appears unremarkable. There is no edema, effusion, pneumothorax or infiltrate. A few incidental subpleural nodules are present within the left lower lobe which measure up to 7 millimeters. Mild linear subsegmental scarring within the lingula. No fibrosis. Mild dependent atelectasis right lower lobe. No fracture. Discogenic spurring midthoracic spine. No suspicious osseous lesion. Impression: No intrathoracic adenopathy. No suspicious pulmonary nodule. A few incidental subpleural nodules are present within the left lower lobe measuring up to 7 millimeters. One year follow-up CT chest could be considered. Please note that all CT scans at this facility use dose modulation, iterative reconstruction, and/or weight-based dosing when appropriate to reduce radiation dose to as low as reasonably achievable. Dictated by Dean Rajan MD @ 02/24/2025 10:16:27 AM (Electronically Signed)
--- NOTE | 2025-02-24 09:15 | CRLHL7_ITS ---
For Patients: As a result of the Century Cures Act, medical imaging exams and procedure reports are released immediately into your electronic medical record. You may view this report before your referring provider. If you have questions, please contact your health care provider. Indication: Enlarged inguinal lymph nodes Technique: Grayscale and color Doppler ultrasound of the left inguinal soft tissues performed. Comparison: CT 02/22/2025 Findings: There is an enlarged circumscribed hypoechoic lymph node within the deep left groin which measures 3.4 x 1.8 x 2.2 cm, corresponding with the CT. Numerous other smaller lymph nodes are present elsewhere within the left inguinal soft tissues. Impression: Suspicious left inguinal lymph node measures 3.4 x 1.8 x 2.2 cm corresponding with the CT abnormality. Ultrasound-guided core needle biopsy recommended. Dictated by Dean Rajan MD @ 02/24/2025 11:13:34 AM (Electronically Signed)
== END 2025-02-24 08:03 | disposition home or self-care (01) ==
LOC: CT 08:02
PROVIDERS: PCP Nurse Practitioner Family; Visit Provider Nurse Practitioner Family
DX: R59.0 Localized enlarged lymph nodes (principal); R10.9 Unspecified abdominal pain
CPT/HCPCS: 71260; 76882; Q9967

== ENCOUNTER 2025-02-25 11:25 | Outpatient (CLI) | payer MEDICARE, BC, SELFPAY ==
--- NOTE | 2025-02-25 11:45 | CRLHL7_ITS ---
For Patients: As a result of the Century Cures Act, medical imaging exams and procedure reports are released immediately into your electronic medical record. You may view this report before your referring provider. If you have questions, please contact your health care provider. ULTRASOUND-GUIDED LEFT INGUINAL LYMPH NODE BIOPSY CLINICAL HISTORY: Enlarged left inguinal lymph node COMPARISON STUDIES: CT 02/22/2025 TECHNIQUE: Real-time ultrasound with image documentation was used for targeting the left inguinal lymph node lesion. Core biopsy specimens were obtained using an automated gun with an 18-gauge biopsy needle. CONSENT and TIME OUT: The procedure, risks, and alternatives were explained to the patient and a consent was signed. [place] Protocol was followed including pre-procedure verification that relevant information/documentation was available, reviewed and properly matched to the patient; consent accurate and complete; and equipment and supplies available. Time Out was conducted just prior to starting procedure to verify the four required elements: patient identity, correct side/site marked (if applicable), procedure, relevant images/results properly labeled and displayed (if applicable). PROCEDURE: The patient was positioned supine on the ultrasound table. The left inguinal skin was prepped with ChloraPrep. 10 cc of 1 percent lidocaine used for local anesthesia. Core samples were obtained. The specimens were placed in 10% formalin and sent to the pathology department. Pressure was held on the biopsy site until all bleeding subsided. The skin incision was closed with Steri-Strips. Post-biopsy instructions were reviewed with the patient, and a written copy was given to her. LATERALITY: Left inguinal region LESION: Enlarged hypoechoic lymph node, new from prior studies, measuring 3.4 x 1.8 x 2.2 cm SUSPICION FOR MALIGNANCY: High NUMBER OF SAMPLES: 5 IMPRESSION: Ultrasound-guided left inguinal lymph node biopsy. Dictated by Dean Rajan MD @ 02/25/2025 1:07:08 PM (Electronically Signed)
== END 2025-02-25 11:26 | disposition home or self-care (01) ==
LOC: US 11:26
PROVIDERS: PCP Nurse Practitioner Family; Visit Provider Family Medicine
DX: R59.0 Localized enlarged lymph nodes (principal); C82.15 Follicular lymphoma grade II, lymph nodes of inguinal region and lower limb
CPT/HCPCS: 38505; 76942; 88305; 88341; 88342; 88360; 88366; A4649

== ENCOUNTER 2025-03-12 10:54 | Outpatient (CLI) | payer MEDICARE, BC, SELFPAY ==
[2025-03-12 10:59] VITALS: BP 117/68; PULSE 68; RESP 16; TEMP 36.8; O2SAT 100; BMI 21.6
[2025-03-12 11:48] VITALS: BP 90/60; PULSE 72; RESP 16; O2SAT 98
--- NOTE | 2025-03-12 11:51 | P.ANES_ITS ---
Anesthesia Charges Start Date/Time Anesthesia Start Date: 03/12/25 Anesthesia Start Time: 11:37 Stop Date/Time Anesthesia Stop Date: 03/12/25 Anesthesia Stop Time: 11:59 Coding CPT Codes CPT Codes: ANESTH BONE ASPIRATE/BX - 61691 ([id number]) P2 - PATIENT W/MILD SYST DISEASE, QK - EARTH MOVING MACHINE OPERATOR 2-4 CNCRNT ANES PROC, QX - MUSIC PROMOTER SVC W/ MD MED DIRECTION
--- NOTE | 2025-03-12 11:51 | W.ANESCHARGE ---
Anesthesia Charges Start Date/Time Anesthesia Start Date: 03/12/25 Anesthesia Start Time: 11:37 Stop Date/Time Anesthesia Stop Date: 03/12/25 Anesthesia Stop Time: 11:59 Coding CPT Codes CPT Codes: ANESTH BONE ASPIRATE/BX - 17437 ([id number]) P2 - PATIENT W/MILD SYST DISEASE, QK - ENROBING MACHINE OPERATOR 2-4 CNCRNT ANES PROC, QX - COMPUTER SUPPORT TECHNICIAN SVC W/ MD MED DIRECTION
--- NOTE | 2025-03-12 11:57 | P.ANES_ITS ---
Anesthesia Charges Start Date/Time Anesthesia Start Date: 03/12/25 Anesthesia Start Time: 11:37 Stop Date/Time Anesthesia Stop Date: 03/12/25 Anesthesia Stop Time: 11:59 Coding CPT Codes CPT Codes: ANESTH BONE ASPIRATE/BX - 48540 ([id number]) P2 - PATIENT W/MILD SYST DISEASE, QK - PEANUT BLANCHER 2-4 CNCRNT ANES PROC, QX - VP OF GLOBAL MARKETING SVC W/ MD MED DIRECTION
--- NOTE | 2025-03-12 11:57 | W.ANESCHARGE ---
Anesthesia Charges Start Date/Time Anesthesia Start Date: 03/12/25 Anesthesia Start Time: 11:37 Stop Date/Time Anesthesia Stop Date: 03/12/25 Anesthesia Stop Time: 11:59 Coding CPT Codes CPT Codes: ANESTH BONE ASPIRATE/BX - 45094 ([id number]) P2 - PATIENT W/MILD SYST DISEASE, QK - APPLIANCE TESTER 2-4 CNCRNT ANES PROC, QX - DIE KEEPER SVC W/ MD MED DIRECTION
[2025-03-12 11:59] VITALS: BP 103/70; PULSE 78; RESP 16; O2SAT 98
[2025-03-12 12:06] VITALS: BP 92/60; PULSE 69; RESP 16; O2SAT 100
[2025-03-12 12:06] LABS: Hematocrit* 40.9 % (33.0-51.0); Hemoglobin* 13.2 gm/dL (12.0-16.0); Immature Granulocytes Pct Auto 0.2 %; Immature Reticulocyte Fraction 2.8 % (3.0-15.9); Mean Corpuscular HGB Conc 32 gm/dL (32-36); Mean Corpuscular Hemoglobin 30 pg (26-34); Mean Corpuscular Volume 92 fL (80-100); RDW Coefficient of Variation % 11.7 % (11.5-15.5); Red Blood Count* 4.47 m/uL (4.00-5.20); Reticulocyte Hemoglobin Equivi 31.1 pg (29.0-35.0); Reticulocytes Absolute 0.02 # (0.03-0.08); White Blood Count* 4.45 K/uL (4.50-11.00)
[2025-03-12 12:11] LABS: Immature Granulocytes Abs Auto 0.00 K/uL (0.00-0.30); Lymphocytes Absolute Auto 1.60 K/uL (0.90-2.90); Slide Review Reflex No
[2025-03-12 12:20] VITALS: BP 106/71; PULSE 66; RESP 16; O2SAT 100
== END 2025-03-12 12:23 | disposition home or self-care (01) ==
LOC: OP CLINIC 10:54
PROVIDERS: PCP Nurse Practitioner Family; Visit Provider Internal Medicine Hematology & Oncology
DX: C82.35 Follicular lymphoma grade IIIa, lymph nodes of inguinal region and lower limb (principal)
CPT/HCPCS: 01112; 36415; 38222; 85025; 85045; 88184; 88185; 88305; 88311; 88313; 88342; 88360; J1644; J2003; J2704

== ENCOUNTER 2025-04-05 08:29 | Outpatient (CLI) | payer MEDICARE, BC, SELFPAY ==
--- NOTE | 2025-04-05 09:00 | CRLHL7_ITS ---
For Patients: As a result of the 21st Century Cures Act, medical imaging exams and procedure reports are released immediately into your electronic medical record. You may view this report before your referring provider. If you have questions, please contact your health care provider. INDICATION: FOLLICULAR LYMPHOMA GRADE IIIa COMPARISON: CT chest 02/24/2025 TECHNIQUE: A CT volumetric acquisition was performed of the neck during intravenous infusion of 71 cc Isovue 370 nonionic intravenous contrast. Please note that all CT scans at this facility use dose modulation, iterative reconstruction, and/or weight-based dosing when appropriate to reduce radiation dose to as low as reasonably achievable. FINDINGS: The CT images demonstrate normal aeration of the mastoid air cells and middle ear cavities. The paranasal sinuses are clear. The nasopharynx appears normal. The parotid and submandibular glands are of normal size and have uniform enhancement. The oropharynx appears normal. The valleculae, epiglottis, aryepiglottic folds and piriform sinuses appear normal. There is a normal appearance of the larynx and subglottic trachea. Multiple prominent left cervical lymph nodes are present, including a left lateral supraclavicular, level Vc, measuring 2.2 cm and level IIa which measures 2.7 cm. Additional prominent lymph nodes are present in the posterior left cervical triangle measuring up to 1.1 cm. Right cervical lymph nodes are less than 1 cm. Multiple small nodules are present within the thyroid bilaterally. Multilevel degenerative changes. No vertebral body compression fracture. IMPRESSION: Multifocal left cervical adenopathy. Please note that all CT scans at this facility use dose modulation, iterative reconstruction, and/or weight-based dosing when appropriate to reduce radiation dose to as low as reasonably achievable. Dictated by Dean Rajan MD @ 04/05/2025 10:40:02 AM (Electronically Signed)
[2025-04-05 09:05] LABS: Creatinine* 0.8 mg/dL (0.5-1.5); Estimated Glomerular Filt Rate 81 ml/min
== END 2025-04-05 08:30 | disposition home or self-care (01) ==
LOC: CT 08:30
PROVIDERS: PCP Nurse Practitioner Family; Visit Provider Internal Medicine Hematology & Oncology
DX: C82.30 Follicular lymphoma grade IIIa, unspecified site (principal); R59.0 Localized enlarged lymph nodes
CPT/HCPCS: 36415; 70491; 82565; Q9967

== ENCOUNTER 2025-04-20 09:55 | Outpatient (CLI) | payer MEDICARE, BC, SELFPAY ==
--- NOTE | 2025-04-20 10:15 | CRLHL7_ITS ---
For Patients: As a result of the Century Cures Act, medical imaging exams and procedure reports are released immediately into your electronic medical record. You may view this report before your referring provider. If you have questions, please contact your health care provider. ULTRASOUND-GUIDED LEFT SUPRACLAVICULAR LYMPH NODE BIOPSY CLINICAL HISTORY: Follicular lymphoma COMPARISON STUDIES: CT neck 04/05/2025 TECHNIQUE: Real-time ultrasound with image documentation was used for targeting the left supraclavicular lymph node lesion. Core biopsy specimens were obtained using a Temno 18-gauge biopsy needle. CONSENT and TIME OUT: The procedure, risks, and alternatives were explained to the patient and a consent was signed. [place] Protocol was followed including pre-procedure verification that relevant information/documentation was available, reviewed and properly matched to the patient; consent accurate and complete; and equipment and supplies available. Time Out was conducted just prior to starting procedure to verify the four required elements: patient identity, correct side/site marked (if applicable), procedure, relevant images/results properly labeled and displayed (if applicable). PROCEDURE: The patient was positioned supine on the ultrasound table. The left lower neck was prepped with ChloraPrep. 6 cc of 1 percent lidocaine used for local anesthesia. Core samples were obtained. The specimens were placed in 10% formalin and sent to the pathology department. Pressure was held on the biopsy site until all bleeding subsided. The skin incision was closed with Steri-Strips. Post-biopsy instructions were reviewed with the patient, and a written copy was given to her. LATERALITY: Left supraclavicular space LESION: Enlarged left supraclavicular lymph node measuring up to 1.7 cm. SUSPICION FOR MALIGNANCY: High NUMBER OF SAMPLES: 5 IMPRESSION: Ultrasound-guided left supraclavicular lymph node biopsy. Dictated by Dean Rajan MD @ 04/21/2025 9:40:55 AM (Electronically Signed)
--- NOTE | 2025-04-20 11:15 | CRLHL7_ITS ---
For Patients: As a result of the Century Cures Act, medical imaging exams and procedure reports are released immediately into your electronic medical record. You may view this report before your referring provider. If you have questions, please contact your health care provider. ULTRASOUND-GUIDED LEFT SUBMANDIBULAR LYMPH NODE BIOPSY CLINICAL HISTORY: Follicular lymphoma COMPARISON STUDIES: CT neck 04/05/2025 TECHNIQUE: Real-time ultrasound with image documentation was used for targeting the left submandibular lymph node lesion. Core biopsy specimens were obtained using a Temno 18-gauge biopsy needle. CONSENT and TIME OUT: The procedure, risks, and alternatives were explained to the patient and a consent was signed. [place] Protocol was followed including pre-procedure verification that relevant information/documentation was available, reviewed and properly matched to the patient; consent accurate and complete; and equipment and supplies available. Time Out was conducted just prior to starting procedure to verify the four required elements: patient identity, correct side/site marked (if applicable), procedure, relevant images/results properly labeled and displayed (if applicable). PROCEDURE: The patient was positioned supine on the ultrasound table. The left neck was prepped with ChloraPrep. 6 cc of 1 percent lidocaine used for local anesthesia. Core samples were obtained. The specimens were placed in 10% formalin and sent to the pathology department. Pressure was held on the biopsy site until all bleeding subsided. The skin incision was closed with Steri-Strips. Post-biopsy instructions were reviewed with the patient, and a written copy was given to her. LATERALITY: Left submandibular space LESION: Enlarged left submandibular lymph node measuring up to 4.2 cm. SUSPICION FOR MALIGNANCY: High NUMBER OF SAMPLES: 5 IMPRESSION: Ultrasound-guided left submandibular lymph node biopsy. Dictated by Dean Rajan MD @ 04/21/2025 9:39:12 AM (Electronically Signed)
== END 2025-04-20 09:56 | disposition home or self-care (01) ==
LOC: US 09:56
PROVIDERS: PCP Nurse Practitioner Family; Visit Provider Internal Medicine Hematology & Oncology
DX: C82.90 Follicular lymphoma, unspecified, unspecified site (principal)
CPT/HCPCS: 20206; 38505; 76942; 88305; 88341; 88342; 88360; 88365; A4649

== ENCOUNTER 2025-05-06 07:31 | Day surgery (SDC) | payer MEDICARE, BC, SELFPAY ==
[2025-05-06] VITALS (7 sets, daily range): BP systolic 107–127; BP diastolic 70–87; PULSE 66–73; RESP 16–18; TEMP 36.2–36.4; O2SAT 98–100; BMI 22.1
[2025-05-06] MEDS: LACTATED RINGERS 1000 ML 1,000 ML 100 ML IV (07:50)
[2025-05-06] MEDS: SODIUM CHLORIDE 0.9 % (FLUSH) 10 ML SYRINGE IVF (08:27)
--- NOTE | 2025-05-06 08:46 | W.PM.H&PU ---
History & Physical Update History & Physical Update H&P Reviewed and patient assessed: No changes noted
--- NOTE | 2025-05-06 08:47 | P.GSOP_ITS ---
Operative Note Date of procedure: 05/06/25 Pre-op diagnosis: 1. Lymphadenopathy 2. Follicular lymphoma Post-op diagnosis: Same Type of Procedure: Left supraclavicular lymph node biopsy Indications: The patient is a 64-year-old female with a recent diagnosis of follicular lymphoma. She recently underwent a PET scan which was positive for numerous hypermetabolic lymph nodes which did not match for pathologic diagnosis per oncology. She underwent a core needle biopsy, however there was insufficient tissue to make the diagnosis. It was recommended that she undergo excisional biopsy. Procedure Description: After discussing the risks and benefits of the procedure, the patient signed inf ormed consent.? The operative site was marked and the patient was brought to the operating room and placed on the operating table in supine position.? Care was taken to pad the patient's pressure points.?? The patient was then given sedation by anesthesia.?? The operative site was then prepped and draped in the usual sterile fashion.? A time-out was then performed. Local anesthetic was injected into the skin and subcutaneous tissue overlying the palpable supraclavicular lymph node. An incision was created and dissection was taken down through the subcutaneous fat and through the platysma into the supraclavicular fossa. The lymph node was palpated. This was somewhat scar scarred into the surrounding tissue superiorly, possibly from prior biopsy. I very carefully dissected around the node using cautery. The node was actually a conglomerate of several nodes. Two smaller more superficial nodes were carefully dissected free. The small feeding vessel was clipped. The larger node which was slightly deeper, was grasped with an Allis and pulled into view. Similarly, cautery was used to carefully dissect this from the surrounding tissue, staying on the node itself to avoid injury or division of surrounding structures. A clip was used to divide the small vessel and lymphatic channel. There were additional nodes palpable, however after having removed these 3 nodes, I felt there was sufficient tissue. A small portion of 2 of the nodes were sent in formalin and the remaining nodes were sent in solution for cytometry. Once this was done, hemostasis appeared excellent. I did place a piece of Surgicel in the wound bed. The platysma layer was closed with 3-0 Vicryl. The skin was then closed with a running 4-0 Monocryl subcuticular suture. Sterile dressings were then applied. ? The patient was then woken and transported to the recovery area in stable condition. ? The patient tolerated the procedure well. Findings: Left supraclavicular lymphadenopathy Anesthesia: MAC Surgeon: Leanne Macdonald MD Estimated blood loss (mL): 5 Specimen: Other Additional Specimen Information: 1. Left supraclavicular lymph nodes in formalin 2. Left supraclavicular lymph nodes for cytometry Condition: stable Disposition: same day
[2025-05-06] MEDS: BUPIVACAINE 0.25% 30 ML INJECTION (09:07)
--- NOTE | 2025-05-06 10:25 | P.ANES_ITS ---
Anesthesia Charges Start Date/Time Anesthesia Start Date: 05/06/25 Anesthesia Start Time: 08:48 Stop Date/Time Anesthesia Stop Date: 05/06/25 Anesthesia Stop Time: 10:13 Coding CPT Codes CPT Codes: ANESTH NECK ORGAN 1YR/> - 00451 ([id number]) P1 - NORMAL HEALTHY PATIENT, QZ - MATERIALS SPECIALIST [facility] [place] W/O SCUBA INSTRUCTOR BY
--- NOTE | 2025-05-06 10:25 | W.ANESCHARGE ---
Anesthesia Charges Start Date/Time Anesthesia Start Date: 05/06/25 Anesthesia Start Time: 08:48 Stop Date/Time Anesthesia Stop Date: 05/06/25 Anesthesia Stop Time: 10:13 Coding CPT Codes CPT Codes: ANESTH NECK ORGAN 1YR/> - 48217 ([id number]) P1 - NORMAL HEALTHY PATIENT, QZ - SOIL SAMPLER [facility] [place] VERIFICATION REP BY
[2025-05-06] MEDS: ACETAMINOPHEN 325 MG TABLET 650 MG PO (10:45)
--- NOTE | 2025-05-06 10:47 | SUR.PHASEII ---
1042: Dr. Macdonald in to speak with patient and spouse.
== END 2025-05-06 11:31 | disposition home or self-care (01) ==
PROVIDERS: PCP Nurse Practitioner Family; Visit Provider Surgery
PROC: (CPT 38500; principal; 2025-05-06 08:45)
DX: R59.0 Localized enlarged lymph nodes (principal); C82.30 Follicular lymphoma grade IIIa, unspecified site
CPT/HCPCS: 38510; 00320; 88184; 88185; 88305; 88341; 88342; 88360; A9270; J0665; J0690; J2250; J2405; J2704; J3490; J7120